=== PATIENT | female | born 1970 | race Caucasian/White ===

== ENCOUNTER → 2016-12-02 | Outpatient (CLI) | payer BC | END | disposition home or self-care (01) | LOC: LABWHC1 09:53 | PROVIDERS: ATTEND Obstetrics & Gynecology | DX: Z13.1 Encounter for screening for diabetes mellitus (principal); Z13.220 Encounter for screening for lipoid disorders | CPT/HCPCS: 36415; 80061; 82947; 84439; 84443 ==

== ENCOUNTER → 2016-12-12 | Outpatient (CLI) | payer BC ==
--- NOTE | 2016-12-17 09:06 | MM ---
Reason for exam: screening (asymptomatic). Last mammogram was performed 1 year and 2 months ago. History: Patient had first child at age 33. Family history of breast cancer in mother at age 65. Benign US biopsy breast VAD LT of the left breast, October 24, 2015. Benign cyst aspiration of the right breast, 1992. Physical Findings: A clinical breast exam by your physician is recommended on an annual basis and results should be correlated with mammographic findings. MG 3D Screening Mammo W/Cad Bilateral CC and MLO view(s) were taken. Prior study comparison: October 24, 2015, left breast MG diagnostic mammo LT wo CAD. October 05, 2015, bilateral MG 3d work up w/cad BRUCE. The breast tissue is extremely dense which could obscure a lesion on mammography. Finding: There is equal, indistinct architectural distortion in the 2 o'clock middle position of the right breast, 7cm from the nipple. Previous mammotome biopsy in the left breast. New finding since October 24, 2015 and October 05, 2015. ASSESSMENT: Incomplete: need additional imaging evaluation, BI-RAD 0 RECOMMENDATION: Special view mammogram of the right breast. If lesion persists on supplemental views, image directed ultrasound is recommended. [facility] will attempt to contact patient to return for supplemental views and ultrasound if indicated.
== END | disposition home or self-care (01) ==
LOC: RADMAMWWP 15:41
PROVIDERS: ATTEND Obstetrics & Gynecology
DX: Z12.31 Encounter for screening mammogram for malignant neoplasm of breast (principal); R92.2 Inconclusive mammogram
CPT/HCPCS: 77063; G0202

== ENCOUNTER → 2016-12-24 | Outpatient (CLI) | payer BC ==
--- NOTE | 2016-12-25 08:00 | MM ---
Reason for exam: additional evaluation requested from abnormal screening. Last mammogram was performed less than 1 month ago. History: Patient had first child at age 33. Family history of breast cancer in mother at age 65. Benign US biopsy breast VAD LT of the left breast, October 24, 2015. Benign cyst aspiration of the right breast, 1992. Physical Findings: Nurse did not find any significant physical abnormalities on exam. MG 3D Work Up W/Cad RT ML and spot compression CC view(s) were taken of the right breast. Prior study comparison: December 12, 2016, bilateral MG 3d screening mammo w/cad. October 24, 2015, left breast MG diagnostic mammo LT wo CAD. There is no discrete abnormality including area of concern. These results were verbally communicated with the patient and result sheet given to the patient on 12/24/16. ASSESSMENT: Probably benign, BI-RAD 3 RECOMMENDATION: Follow-up diagnostic mammogram of the right breast in 6 months.
== END | disposition home or self-care (01) ==
LOC: RADMAMWWP 12:55
PROVIDERS: ATTEND Obstetrics & Gynecology
DX: R92.8 Other abnormal and inconclusive findings on diagnostic imaging of breast (principal)
CPT/HCPCS: G0206; G0279

== ENCOUNTER → 2017-06-19 | Outpatient (CLI) | payer BC ==
--- NOTE | 2017-06-22 08:34 | MM ---
Reason for exam: follow-up at short interval from prior study. Last mammogram was performed 6 months ago. History: Patient had first child at age 33. Family history of breast cancer in mother at age 65. Benign US biopsy breast VAD LT of the left breast, October 24, 2015. Benign cyst aspiration of the right breast, 1992. Physical Findings: Nurse did not find any significant physical abnormalities on exam. MG 3D Diag Mammo W/Cad RT CC and MLO view(s) were taken of the right breast. Prior study comparison: December 24, 2016, right breast MG 3d work up w/cad RT. December 12, 2016, bilateral MG 3d screening mammo w/cad. June 16, 2016, left breast US breast LT. The breast tissue is heterogeneously dense. This may lower the sensitivity of mammography. Previous density decreased from prior. Some linear density present, short term follow up recommended. This finding is changed when compared with previous exams. These results were verbally communicated with the patient and result sheet given to the patient on 06/19/17. ASSESSMENT: Probably benign, BI-RAD 3 RECOMMENDATION: Follow-up diagnostic mammogram of both breasts in 6 months.
== END | disposition home or self-care (01) ==
LOC: RADMAMWWP 14:52
PROVIDERS: ATTEND Obstetrics & Gynecology
DX: R92.8 Other abnormal and inconclusive findings on diagnostic imaging of breast (principal)
CPT/HCPCS: G0206; G0279

== ENCOUNTER → 2018-01-22 | Outpatient (CLI) | payer BC ==
--- NOTE | 2018-01-22 14:38 | MM ---
Reason for exam: follow-up at short interval from prior study. Last mammogram was performed 7 months ago. History: Patient had first child at age 33. Family history of breast cancer in mother at age 65. Benign US biopsy breast VAD LT of the left breast, October 24, 2015. Benign cyst aspiration of the right breast, 1992. Physical Findings: Nurse Summary: 1 x 0.5cm nodule in the left breast at 2 o'clock (nurse ts). MG 3D Diag Mammo W/Cad BRUCE Bilateral CC and MLO view(s) were taken. Prior study comparison: June 19, 2017, right breast MG 3d diag mammo w/cad RT. December 24, 2016, right breast MG 3d work up w/cad RT. The breast tissue is heterogeneously dense. This may lower the sensitivity of mammography. New asymmetry 6cm from nipple, likely in the superior left breast as no inferior corresponding asymmetry is seen. These results were verbally communicated with the patient and result sheet given to the patient on 01/22/18. ASSESSMENT: Incomplete: need additional imaging evaluation, BI-RAD 0 RECOMMENDATION: Ultrasound of the left breast. (upper outer quadrant)
--- NOTE | 2018-01-22 14:40 | USB ---
Reason for exam: additional evaluation requested from abnormal screening. History: Patient had first child at age 33. Family history of breast cancer in mother at age 65. Benign US biopsy breast VAD LT of the left breast, October 24, 2015. Benign cyst aspiration of the right breast, 1992. US Breast Limited LT Left breast ultrasound demonstrates a 1.2 x 0.5 x 0.8cm oval, solid, hypoechoic lesion at 2 o'clock, previously biopsied, biopsy proven fibroadenoma. These results were verbally communicated with the patient and result sheet given to the patient on 01/22/18. ASSESSMENT: Probably benign, BI-RAD 3 RECOMMENDATION: Follow-up diagnostic mammogram of the left breast in 6 months. (asymmetry versus focal asymmetry with no sonographic correlate)
== END | disposition home or self-care (01) ==
LOC: RADMAMWWP 13:00
PROVIDERS: ATTEND Family Medicine
DX: R92.8 Other abnormal and inconclusive findings on diagnostic imaging of breast (principal)
CPT/HCPCS: 77066; 76642; G0279

== ENCOUNTER → 2018-07-29 | Outpatient (CLI) | payer BC ==
--- NOTE | 2018-07-29 09:45 | MM ---
Reason for exam: follow-up at short interval from prior study. Last mammogram was performed 6 months ago. History: Patient had first child at age 33. Family history of breast cancer in mother at age 65. Benign US biopsy breast VAD LT of the left breast, October 24, 2015. Benign cyst aspiration of the right breast, 1992. Physical Findings: Nurse did not find any significant physical abnormalities on exam. MG 3D Diag Mammo W/Cad LT CC, MLO, and XCCL view(s) were taken of the left breast. Prior study comparison: January 22, 2018, bilateral MG 3d diag mammo w/cad BRUCE. June 19, 2017, right breast MG 3d diag mammo w/cad RT. The breast tissue is heterogeneously dense. This may lower the sensitivity of mammography. There is no discrete abnormality including area of concern. No significant new findings when compared with previous films. These results were verbally communicated with the patient and result sheet given to the patient on 07/29/18. ASSESSMENT: Negative, BI-RAD 1 RECOMMENDATION: Routine screening mammogram of both breasts in 6 months. Back on schedule. Manage patient on a clinical basis.
== END | disposition home or self-care (01) ==
LOC: RADMAMWWP 08:56
PROVIDERS: ATTEND Obstetrics & Gynecology
DX: R92.8 Other abnormal and inconclusive findings on diagnostic imaging of breast (principal)
CPT/HCPCS: 77061; 77065

== ENCOUNTER → 2019-07-22 | Outpatient (CLI) | payer BC ==
[2019-07-22 09:43] LABS: HCT 43.4 % (34.0-46.0); HGB 14.2 gm/dL (11.4-16.0); MCH 30.5 pg (25.0-35.0); MCHC 32.8 g/dL (31.0-37.0); MCV 93.1 fL (80.0-100.0); Mean Platelet Volume 7.5; Platelet Count 276 k/uL (150-450); RBC 4.66 m/uL (3.80-5.40); RDW 14.6 % (11.5-15.5); WBC 5.3 k/uL (3.8-10.6)
[2019-07-22 10:14] LABS: Appearance,Urine Cloudy (Clear); Bacteria,Urine Rare /hpf; Bilirubin,Urine Negative (Negative); Blood,Urine Negative (Negative); Color,Urine Yellow; Glucose,Urine (UA) Negative (Negative); Ketones,Urine Negative (Negative); Leukocyte Esterase,Urine Negative (Negative); Mucus,Urine Many /hpf; Nitrite,Urine Negative (Negative); Protein,Urine Trace (Negative); RBC,Urine 2 /hpf (0-5); Specific Gravity,Urine 1.021 (1.001-1.035); Squamous Epithelial Cell,Urine 9 /hpf (0-4); Urobilinogen,Urine <2.0 mg/dL (<2.0); WBC,Urine 1 /hpf (0-5)
[2019-07-22 17:10] LABS: Albumin 4.1 g/dL (3.80-4.90); Albumin/Globulin Ratio 2.05 (1.60-3.17); Anion Gap 6.8 mmol/L (4.00-12.00); BUN/Creat Ratio 15.56 Ratio (12.00-20.00); Calcium 9.2 mg/dL (8.7-10.3); Carbon Dioxide 29.2 mmol/L (21.6-31.8); Chol/HDL Ratio 2.95; Non-African American GFR(CKD) 75.1 (60.0-200.0); Potassium 4.7 mmol/L (3.5-5.5); Total Bilirubin 0.5 mg/dL (0.3-1.2); Total Protein 6.1 g/dL (6.2-8.2)
== END | disposition home or self-care (01) ==
LOC: LABWHC1 08:39
PROVIDERS: ATTEND Family Medicine
DX: Z00.00 Encounter for general adult medical examination without abnormal findings (principal)
CPT/HCPCS: 36415; 80053; 80061; 81001; 85027

== ENCOUNTER → 2019-12-14 | Outpatient (CLI) | payer BC ==
--- NOTE | 2019-12-16 10:23 | MM ---
Reason for exam: screening (asymptomatic). Last mammogram was performed 1 year and 5 months ago. History: Patient had first child at age 33. Family history of breast cancer in mother at age 65. Benign US biopsy breast VAD LT of the left breast, October 24, 2015. Benign cyst aspiration of the right breast, 1992. Physical Findings: A clinical breast exam by your physician is recommended on an annual basis and results should be correlated with mammographic findings. MG 3D Screening Mammo W/Cad Bilateral CC and MLO view(s) were taken. Prior study comparison: July 29, 2018, left breast MG 3d diag mammo w/cad LT. January 22, 2018, bilateral MG 3d diag mammo w/cad BRUCE. The breast tissue is heterogeneously dense. This may lower the sensitivity of mammography. Previous mammotome biopsy in the left breast. There is chronic nodularity in the right breast associated with fat necrosis. There is chronic nodularity in the left breast medially. Benign fat necrosis calcifications anterior upper outer quadrant right breast. No significant changes when compared with prior studies. ASSESSMENT: Benign, BI-RAD 2 RECOMMENDATION: Routine screening mammogram of both breasts in 1 year.
== END | disposition home or self-care (01) ==
LOC: RADMAMWWP 16:54
PROVIDERS: ATTEND Obstetrics & Gynecology
DX: Z12.31 Encounter for screening mammogram for malignant neoplasm of breast (principal); Z80.3 Family history of malignant neoplasm of breast
CPT/HCPCS: 77063; 77067

== ENCOUNTER 2020-03-25 15:55 | Observation (INO) | payer BC ==
--- NOTE | 2020-03-25 16:27 | ED ---
General Adult HPI - General Chief complaint: Chest Pain Stated complaint: Chest Pain Time Seen by Provider: 03/25/20 16:06 Source: patient Mode of arrival: ambulatory Limitations: no limitations - History of Present Illness Initial comments: 49-year-old female patient presents to the emergency department today for evaluation of left-sided chest discomfort. Patient states symptoms started yesterday is like a pulled muscle feeling in the left side of her chest. States that the pain was intermittent and seem to worsen with physical activity. States that the pain is moved to beneath her armpits today. Patient states that she did have some nausea last evening. Denies any diaphoresis or shortness of breath. Denies any leg swelling, calf tenderness, or leg redness. Denies any history of similar symptoms. Denies history of smoking. She does have a family history of coronary artery disease, her father had a 5 vessel CABG at age 71. Patient denies any recent rash, fever, chills, cough, diarrhea, constipation, back pain, numbness, tingling, dizziness, weakness, hematuria, dysuria, urinary urgency, urinary frequency, headache, visual changes, or any other complaints. - Related Data Home Medications Medication Instructions Recorded Confirmed Aspirin EC [Ecotrin Low Dose] 81 mg PO ONCE PRN 03/25/20 03/25/20 Latanoprost [Xalatan 0.005%] 1 drop BOTH EYES HS 03/25/20 03/25/20 Omeprazole 20 mg PO DAILY 03/25/20 03/25/20 Allergies Allergy/AdvReac Type Severity Reaction Status Date / Time codeine Allergy Nausea & Verified 03/25/20 17:22 Vomiting Penicillins Allergy Rash/Hives Verified 03/25/20 17:22 Review of Systems ROS Statement: Those systems with pertinent positive or pertinent negative responses have been documented in the HPI. ROS Other: All systems not noted in ROS Statement are negative. Past Medical History Past Medical History: GERD/Reflux History of Any Multi-Drug Resistant Organisms: None Reported Past Surgical History: No Surgical Hx Reported Past Psychological History: No Psychological Hx Reported Smoking Status: Never smoker Past Alcohol Use History: None Reported Past Drug Use History: None Reported General Exam Limitations: no limitations General appearance: alert, in no apparent distress, other (This is a well- developed, well-nourished adult female patient in no acute distress. Vital signs upon presentation are temperature 97.9F, pulse 88, respirations 18, blood pressure 132/81, pulse ox 97% on room air) Eye exam: Present: normal appearance, PERRL, EOMI. Absent: scleral icterus, conjunctival injection, periorbital swelling ENT exam: Present: normal exam, normal oropharynx, mucous membranes moist Respiratory exam: Present: normal lung sounds bilaterally. Absent: respiratory distress, wheezes, rales, rhonchi, stridor Cardiovascular Exam: Present: regular rate, normal rhythm, normal heart sounds. Absent: systolic murmur, diastolic murmur, rubs, gallop, clicks GI/Abdominal exam: Present: soft, normal bowel sounds. Absent: distended, tenderness, guarding, rebound, rigid Neurological exam: Present: alert, oriented X3, CN II-XII intact Psychiatric exam: Present: normal affect, normal mood Skin exam: Present: warm, dry, intact, normal color. 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 No evidence of ST elevation or depression. Medical Decision Making - Medical Decision Making 49-year-old female patient presents to the emergency department today for evaluation of chest pain. Patient's pain is on the left side radiating into her armpit. Pain is worse with exertion. Physical examination is unremarkable. Labs were reviewed and initial troponin is negative. She'll be admitted for serial troponins and further evaluation by cardiology in the morning. She is agreeable to this plan. - Lab Data Result diagrams: 03/25/20 16:16 03/25/20 16:16 Lab Results 03/25/20 03/25/20 03/25/20 Range/Units 16:16 16:16 16:16 WBC 5.5 (3.8-10.6) k/uL RBC 4.87 (3.80-5.40) m/uL Hgb 14.9 (11.4-16.0) gm/dL Hct 45.4 (34.0-46.0) % MCV 93.2 (80.0-100.0) fL MCH 30.5 (25.0-35.0) pg MCHC 32.7 (31.0-37.0) g/dL RDW 12.4 (11.5-15.5) % Plt Count 245 (150-450) k/uL Neutrophils % 67 % Lymphocytes % 23 % Monocytes % 5 % Eosinophils % 2 % Basophils % 1 % Neutrophils # 3.7 (1.3-7.7) k/uL Lymphocytes # 1.3 (1.0-4.8) k/uL Monocytes # 0.3 (0-1.0) k/uL Eosinophils # 0.1 (0-0.7) k/uL Basophils # 0.0 (0-0.2) k/uL PT 10.1 (9.0-12.0) sec INR 1.0 (<1.2) APTT 24.6 (22.0-30.0) sec Sodium 140 (137-145) mmol/L Potassium 3.9 (3.5-5.1) mmol/L Chloride 101 (98-107) mmol/L Carbon Dioxide 30 (22-30) mmol/L Anion Gap 9 mmol/L BUN 15 (7-17) mg/dL Creatinine 0.88 (0.52-1.04) mg/dL Est GFR (CKD-EPI)AfAm 90 (>60 ml/min/1.73 sqM) Est GFR (CKD-EPI)NonAf 78 (>60 ml/min/1.73 sqM) Glucose 100 H (74-99) mg/dL Calcium 9.7 (8.4-10.2) mg/dL Magnesium 2.0 (1.6-2.3) mg/dL Total Bilirubin 0.4 (0.2-1.3) mg/dL AST 19 (14-36) U/L ALT 14 (4-34) U/L Alkaline Phosphatase 71 (38-126) U/L Troponin I (0.000-0.034) ng/mL Total Protein 7.6 (6.3-8.2) g/dL Albumin 4.7 (3.5-5.0) g/dL Lipase 78 (23-300) U/L 03/25/20 Range/Units 16:16 WBC (3.8-10.6) k/uL RBC (3.80-5.40) m/uL Hgb (11.4-16.0) gm/dL Hct (34.0-46.0) % MCV (80.0-100.0) fL MCH (25.0-35.0) pg MCHC (31.0-37.0) g/dL RDW (11.5-15.5) % Plt Count (150-450) k/uL Neutrophils % % Lymphocytes % % Monocytes % % Eosinophils % % Basophils % % Neutrophils # (1.3-7.7) k/uL Lymphocytes # (1.0-4.8) k/uL Monocytes # (0-1.0) k/uL Eosinophils # (0-0.7) k/uL Basophils # (0-0.2) k/uL PT (9.0-12.0) sec INR (<1.2) APTT (22.0-30.0) sec Sodium (137-145) mmol/L Potassium (3.5-5.1) mmol/L Chloride (98-107) mmol/L Carbon Dioxide (22-30) mmol/L Anion Gap mmol/L BUN (7-17) mg/dL Creatinine (0.52-1.04) mg/dL Est GFR (CKD-EPI)AfAm (>60 ml/min/1.73 sqM) Est GFR (CKD-EPI)NonAf (>60 ml/min/1.73 sqM) Glucose (74-99) mg/dL Calcium (8.4-10.2) mg/dL Magnesium (1.6-2.3) mg/dL Total Bilirubin (0.2-1.3) mg/dL AST (14-36) U/L ALT (4-34) U/L Alkaline Phosphatase (38-126) U/L Troponin I <0.012 (0.000-0.034) ng/mL Total Protein (6.3-8.2) g/dL Albumin (3.5-5.0) g/dL Lipase (23-300) U/L - Radiology Data Radiology results: report reviewed, image reviewed Two-view x-ray of the chest is obtained. Report was reviewed in its entirety. Impression by Dr. Anand shows no acute pulmonary process. Disposition Clinical Impression: Chest pain Disposition: ADMITTED IP TO THIS HOSP Condition: Serious Referrals: Ulises Rojas MD [Primary Care Provider] - 1-2 days Decision to Admit Reason: Admit from EC Decision Date: 03/25/20 Decision Time: 18:14
[2020-03-25 16:45] LABS: Basophils % (A) 1 %; Eosinophils # (A) 0.1 k/uL (0-0.7); Eosinophils % (A) 2 %; HCT 45.4 % (34.0-46.0); HGB 14.9 gm/dL (11.4-16.0); Lymphocytes # (A) 1.3 k/uL (1.0-4.8); Lymphocytes % (A) 23 %; MCH 30.5 pg (25.0-35.0); MCHC 32.7 g/dL (31.0-37.0); MCV 93.2 fL (80.0-100.0); Mean Platelet Volume 8.1; Monocytes # (A) 0.3 k/uL (0-1.0); Monocytes % (A) 5 %; Neutrophils # (A) 3.7 k/uL (1.3-7.7); Neutrophils % (A) 67 %; Platelet Count 245 k/uL (150-450); RBC 4.87 m/uL (3.80-5.40); RDW 12.4 % (11.5-15.5); WBC 5.5 k/uL (3.8-10.6)
[2020-03-25 16:48] LABS: Albumin 4.7 g/dL (3.5-5.0); Calcium 9.7 mg/dL (8.4-10.2); Potassium 3.9 mmol/L (3.5-5.1); Total Bilirubin 0.4 mg/dL (0.2-1.3); Total Protein 7.6 g/dL (6.3-8.2)
--- NOTE | 2020-03-25 16:48 | XR ---
EXAMINATION TYPE: XR chest 2V DATE OF EXAM: 03/25/2020 COMPARISON: 05/28/2011 INDICATION: Chest pain left side increases with activity TECHNIQUE: Frontal and lateral views of the chest are obtained. FINDINGS: The heart size is normal. The pulmonary vasculature is normal. The lungs are clear. IMPRESSION: 1. No acute pulmonary process.
[2020-03-25 16:51] LABS: Partial Thromboplastin Time 24.6 sec (22.0-30.0); Prothrombin Time 10.1 sec (9.0-12.0)
[2020-03-25] MEDS ORDERED: NITROGLYCERIN SL TABS 0.4 MG TAB SUBLINGUAL PRN (18:10)
[2020-03-25] MEDS ORDERED: ONDANSETRON 4 MG/2 ML VIAL IVP PRN (22:24)
[2020-03-25] MEDS: NITROGLYCERIN OINT 1 INCH/GM PACKET TOPICAL SCH ×2 (22:39→23:34)
[2020-03-26 04:45] LABS: HCT 39.6 % (34.0-46.0); HGB 13.4 gm/dL (11.4-16.0); MCH 31.4 pg (25.0-35.0); MCHC 33.8 g/dL (31.0-37.0); MCV 92.9 fL (80.0-100.0); Platelet Count 216 k/uL (150-450); RBC 4.26 m/uL (3.80-5.40); RDW 12.5 % (11.5-15.5); WBC 5.9 k/uL (3.8-10.6)
[2020-03-26 05:03] LABS: Cholesterol 164 mg/dL (<200); HDL Cholesterol 49 mg/dL (40-60); LDL Cholesterol,Calculated 94 mg/dL (0-99); Triglycerides 104 mg/dL (<150)
[2020-03-26] MEDS: NITROGLYCERIN OINT 1 INCH/GM PACKET TOPICAL SCH (05:03)
[2020-03-26] MEDS ORDERED: ASPIRIN 325 MG TAB PO SCH (09:00)
[2020-03-26] MEDS ORDERED: PANTOPRAZOLE 40 MG TABLET PO SCH (09:00)
[2020-03-26] MEDS ORDERED: HEPARIN SODIUM,PORCINE 5,000 UNIT/ML 1 ML VIAL SQ SCH (09:00)
--- NOTE | 2020-03-26 09:03 | P.CRDCN ---
History of Present Illness Consult date: 03/26/20 Consult reason: chest pain Chief complaint: Chest pain History of present illness: This is a pleasant 49-year-old female with no prior documented history of hypertension, no diabetes, no hyperlipidemia, no prior history of smoking. Her father had coronary artery bypass grafting surgery at the age of 71. She presents to the hospital on this occasion with symptoms of left-sided chest discomfort, which the patient states started the day before coming to the hospital. She initially stated that it felt like a pulled muscle in her chest. It is very localized, mainly in the left sided rib area. Patient did state that prior to coming to the hospital she did have an episode of nausea and hot flashes the night before. This morning the patient is currently chest pain- free. Blood pressure 90/50 with a heart rate in the 60s, 96% on room air. Chest x-ray did not reveal any acute pulmonary process. EKGs show normal sinus rhythm with no acute changes. White blood cell count 5.9, hemoglobin 13.4, platelet count 216. Sodium 140, potassium 3.9, BUN 15, creatinine 0.8. Magnesium 2.0. Troponins are negative 3. Olson virus and not detected. Patient was seen and evaluated by Dr. Desir, the decision was made to obtain an echocardiogram with Doppler study, if normal the patient may be able to be discharged home. He will follow-up in the office with her in one week, outpatient stress testing will be performed if necessary. Past Medical History Past Medical History: GERD/Reflux History of Any Multi-Drug Resistant Organisms: None Reported Past Surgical History: No Surgical Hx Reported Past Psychological History: No Psychological Hx Reported Smoking Status: Never smoker Past Alcohol Use History: None Reported Past Drug Use History: None Reported Medications and Allergies Home Medications Medication Instructions Recorded Confirmed Type Aspirin EC [Ecotrin Low Dose] 81 mg PO ONCE PRN 03/25/20 03/25/20 History Latanoprost [Xalatan 0.005%] 1 drop BOTH EYES HS 03/25/20 03/25/20 History Omeprazole 20 mg PO DAILY 03/25/20 03/25/20 History Allergies Allergy/AdvReac Type Severity Reaction Status Date / Time codeine Allergy Nausea & Verified 03/25/20 17:22 Vomiting Penicillins Allergy Rash/Hives Verified 03/25/20 17:22 Physical Exam Vitals: Vital Signs Temp Pulse Pulse Pulse Resp BP BP 03/26/20 08:05 98.5 F 48 L 16 85/53 03/26/20 04:00 64 16 90/52 03/25/20 23:45 72 16 126/79 03/25/20 22:03 90 16 95/59 03/25/20 21:57 68 16 122/77 03/25/20 20:00 97.6 F 59 L 16 129/86 03/25/20 18:00 52 L 17 117/81 03/25/20 17:30 60 19 111/80 03/25/20 17:00 62 18 117/77 03/25/20 16:30 71 17 129/95 03/25/20 16:20 82 03/25/20 16:11 76 17 03/25/20 16:00 97.9 F 88 18 132/81 Pulse Ox 03/26/20 08:05 99 03/26/20 04:00 96 03/25/20 23:45 98 03/25/20 22:03 97 03/25/20 21:57 98 03/25/20 20:00 98 03/25/20 18:00 100 03/25/20 17:30 98 03/25/20 17:00 98 03/25/20 16:30 100 03/25/20 16:20 03/25/20 16:11 99 03/25/20 16:00 97 Intake and Output 03/25/20 03/26/20 03/26/20 22:59 06:59 14:59 Other: # Voids 1 0 Weight 68.039 kg 65.5 kg PHYSICAL EXAMINATION: GENERAL: 49-year-old female in no acute distress at the time of my e xamination HEENT: Head is atraumatic, normocephalic. Pupils equal, round. Sclera anicteric. Conjunctiva are clear. Mucous membranes of the mouth are moist. Neck is supple. There is no elevated jugular venous pressure. No carotid bruit is heard. HEART EXAMINATION: Heart S1, S2 normal. No murmur or gallop heard. CHEST EXAMINATION: Lungs are clear to auscultation and precussion. No chest wall tenderness is noted on palpation or with deep breathing. ABDOMEN: Soft, nontender. Bowel sounds are heard. No organomegaly noted. EXTREMITIES: 2+ peripheral pulses with no evidence of peripheral edema and no calf tenderness noted. NEUROLOGIC patient is awake, alert and oriented 3 . Results 03/26/20 04:37 03/25/20 16:16 Cardiac Enzymes 03/25/20 03/25/20 03/25/20 Range/Units 16:16 16:16 23:09 AST 19 (14-36) U/L Troponin I <0.012 <0.012 (0.000-0.034) ng/mL 03/26/20 Range/Units 04:37 AST (14-36) U/L Troponin I <0.012 (0.000-0.034) ng/mL Coagulation 03/25/20 Range/Units 16:16 PT 10.1 (9.0-12.0) sec APTT 24.6 (22.0-30.0) sec Lipids 03/26/20 Range/Units 04:37 Triglycerides 104 (<150) mg/dL Cholesterol 164 (<200) mg/dL HDL Cholesterol 49 (40-60) mg/dL CBC 03/25/20 03/26/20 Range/Units 16:16 04:37 WBC 5.5 5.9 (3.8-10.6) k/uL RBC 4.87 4.26 (3.80-5.40) m/uL Hgb 14.9 13.4 (11.4-16.0) gm/dL Hct 45.4 39.6 (34.0-46.0) % Plt Count 245 216 (150-450) k/uL Comprehensive Metabolic Panel 03/25/20 Range/Units 16:16 Sodium 140 (137-145) mmol/L Potassium 3.9 (3.5-5.1) mmol/L Chloride 101 (98-107) mmol/L Carbon Dioxide 30 (22-30) mmol/L BUN 15 (7-17) mg/dL Creatinine 0.88 (0.52-1.04) mg/dL Glucose 100 H (74-99) mg/dL Calcium 9.7 (8.4-10.2) mg/dL AST 19 (14-36) U/L ALT 14 (4-34) U/L Alkaline Phosphatase 71 (38-126) U/L Total Protein 7.6 (6.3-8.2) g/dL Albumin 4.7 (3.5-5.0) g/dL Current Medications Generic Name Dose Route Start Last Admin Trade Name Freq PRN Reason Stop Dose Admin Aspirin 325 mg 03/26/20 09:00 03/26/20 08:15 Aspirin PO 325 mg DAILY RAGHU Administration Heparin Sodium (Porcine) 5,000 unit 03/26/20 09:00 03/26/20 08:15 Heparin SQ 5,000 unit Q12HR RAGHU Administration Latanoprost 1 drops 03/26/20 21:00 Xalatan 0.005% BOTH EYES HS RAGHU Nitroglycerin 0.4 mg 03/25/20 18:10 03/25/20 21:57 Nitrostat SUBLINGUAL 0.4 mg Q5M PRN Administration Chest Pain Nitroglycerin 1 inch 03/25/20 22:25 03/26/20 05:03 Nitro-Bid Oint TOPICAL Not Given Q6HR [facility] Ondansetron HCl 4 mg 03/25/20 22:24 03/25/20 22:39 Zofran IVP 4 mg Q6HR PRN Administration Nausea And Vomiting Pantoprazole Sodium 40 mg 03/26/20 09:00 Protonix PO AC-BRKFST [facility] Intake and Output 03/25/20 03/26/20 03/26/20 22:59 06:59 14:59 Other: # Voids 1 0 Weight 68.039 kg 65.5 kg 03/26/20 04:37 03/25/20 16:16 EKG Interpretations (text) EKG shows a normal sinus rhythm with no acute changes. Assessment and Plan Plan: Assessment and plan #1 symptoms of chest discomfort, very localized on the left side of the chest, atypical for acute coronary syndrome. Troponins are negative 3. EKG shows a normal sinus rhythm with no acute changes. #2 cardiac risk factors negative for hypertension, no diabetes, no hyperlipidemia, she is a nonsmoker. #3 GERD Plan We will obtain an echocardiogram with Doppler study. Discontinue heparin. Discontinue Nitropaste. Decrease aspirin to 81 mg daily. If the patient's echocardiogram with Doppler study is normal, then from cardiology's perspective she may be able to be discharged home. We will make her a follow-up visit with Dr. Desir in one week, outpatient stress testing will be performed if necessary. DNP note has been reviewed, I agree with a documented findings and plan of care. Patient was seen and examined.
--- NOTE | 2020-03-26 10:00 | ECHOF ---
Referral Reason:chest pain MEASUREMENTS -------- HEIGHT: 165.1 cm WEIGHT: 65.3 kg BP: IVSd: 0.8 cm (0.6 - 1.1) LVIDd: 4.6 cm (3.9 - 5.3) LVPWd: 1.0 cm (0.6 - 1.1) IVSs: 1.1 cm LVIDs: 2.8 cm LVPWs: 1.3 cm Ao Diam: 2.6 cm (2.0 - 3.7) AV Cusp: 2.0 cm (1.5 - 2.6) LA Diam: 3.2 cm (2.7 - 3.8) MV EXCURSION: 20.477 mm (> 18.000) MV EF SLOPE: 188 mm/s (70 - 150) EPSS: 0.7 cm MV E Wili: 0.66 m/s MV DecT: 184 ms MV A Wili: 0.48 m/s MV E/A Ratio: 1.38 RAP: 5.00 mmHg RVSP: 21.42 mmHg FINDINGS -------- Resting bradycardia (HR<60bpm). This was a technically good study. The left ventricular size is normal. Left ventricular wall thickness is normal. Overall left vent ricular systolic function is low-normal with, an EF between 50 - 55 %. The right ventricle is normal in size. The left atrial size is normal. The right atrial size is normal. The aortic valve is trileaflet and appears structurally normal. The mitral valve is normal. There is trace mitral regurgitation. The tricuspid valve appears structurally normal. Trace tricuspid regurgitation present. Right ariana tricular systolic pressure is normal at < 35 mmHg. There is no pulmonic regurgitation present. The aortic root size is normal. Normal inferior vena cava with normal inspiratory collapse consistent with estimated right atrial pre ssure of 5 mmHg. There is no pericardial effusion. CONCLUSIONS -------- 1. Resting bradycardia (HR<60bpm). 2. This was a technically good study. 3. The left ventricular size is normal. 4. Left ventricular wall thickness is normal. 5. Overall left ventricular systolic function is low-normal with, an EF between 50 - 55 %. 6. The right ventricle is normal in size. 7. The left atrial size is normal. 8. The right atrial size is normal. 9. The aortic valve is trileaflet and appears structurally normal. 10. The mitral valve is normal. 11. There is trace mitral regurgitation. 12. The tricuspid valve appears structurally normal. 13. Trace tricuspid regurgitation present. 14. Right ventricular systolic pressure is normal at < 35 mmHg. 15. There is no pulmonic regurgitation present. 16. The aortic root size is normal. 17. Normal inferior vena cava with normal inspiratory collapse consistent with estimated right atrial pressure of 5 mmHg. 18. There is no pericardial effusion. POLITICAL THEORY PROFESSOR: Domenica Kim RDCS
[2020-03-26 12:01] VITALS: BP 97/63; PULSE 82; RESP 18; TEMP 98
[2020-03-26] MEDS ORDERED: LATANOPROST 0.005% OPHTH DROPS 2.5 ML BTL BOTH EYES SCH (21:00)
--- NOTE | 2020-03-26 21:58 | P.HPIM ---
History of Present Illness H&P Date: 03/26/20 Chief Complaint: Chest pain History of presenting complaint: This is a very pleasant 49-year-old patient of Dr. Rojas. Rather unremarkable past medical history except for history of reflux somewhat uncontrolled. 2 days ago she woke up in the morning with the pain below the left infraclavicular area. It was tender to touch does no cough no fever no chills. Pain did not radiate to the neck or arm. Not related to exertion. Patient denied having remember any excessive activity. He was present most of the time. Decided to come in to get checked of the same. From a cardiac cause. Patient is rather active. No prior cardiac history. Review of systems: GEN.: None EYES: None HEENT: None NECK: None RESPIRATORY: None CARDIOVASCULAR: As above GASTROINTESTINAL: Reflux symptoms GENITOURINARY: None MUSCULOSKELETAL: None LYMPHATICS: None HEMATOLOGICAL: None PSYCHIATRY: None NEUROLOGICAL: None Past medical history to include: Reflux Social history: . teacher early childhood development. No smoking no alcohol. Family history: Reviewed, noncontributory to presentation Physical examination: VITAL SIGNS: 97.9, 88, 18, 132/81, 97% on room air GENERAL: BMI 24, sitting up awake. EYES: Pupils equal. Conjunctiva normal. HEENT: External appearance of nose and ears normal, oral cavity grossly normal. NECK: JVD not raised; masses not palpable. HEART: First and second heart sounds are normal; no edema. LUNGS: Respiratory rate normal; clear to auscultation. ABDOMEN: Soft, nontender, liver spleen not palpable, no masses palpable. PSYCH: Alert and oriented x3; mood and affect normal. NEUROLOGICAL: Cranial nerves grossly intact; no facial asymmetry, power and sensation grossly intact MUSCULOSKELETAL: Localized tenderness below the infraclavicular area about 3 inches below. Reproducible. LYMPHATICS: No lymph nodes palpable in the axilla and neck INVESTIGATIONS, reviewed in the clinical context: White count 5.5 hemoglobin 14.9 platelets 245 progression 3.9 crit 0.88 Troponin I 3 negative LDL 94 COVID 19 pCR-not detected EKG tracing personally reviewed by me-normal sinus rhythm Chest x-ray film personally reviewed by me-no infiltrates Assessment: -Left anterior chest wall pain, reproducible, doubt cardiac cause -GERD-controlled Plan: Serial cardiac enzymes are negative. Cardiology was consulted. 2-D daughter 2- D echocardiogram. Discussed with the patient to have an outpatient EGD. Because of Prilosec to be doubled. Past Medical History Past Medical History: GERD/Reflux History of Any Multi-Drug Resistant Organisms: None Reported Past Surgical History: No Surgical Hx Reported Past Psychological History: No Psychological Hx Reported Smoking Status: Never smoker Past Alcohol Use History: None Reported Past Drug Use History: None Reported Medications and Allergies Home Medications Medication Instructions Recorded Confirmed Type Latanoprost [Xalatan 0.005%] 1 drop BOTH EYES HS 03/25/20 03/25/20 History Omeprazole 20 mg PO BID #60 cap 03/26/20 Rx Allergies Allergy/AdvReac Type Severity Reaction Status Date / Time codeine Allergy Nausea & Verified 03/25/20 17:22 Vomiting Penicillins Allergy Rash/Hives Verified 03/25/20 17:22 Physical Exam Vitals: Vital Signs Temp Pulse Pulse Pulse Resp BP BP 03/26/20 08:05 98.5 F 48 L 16 85/53 03/26/20 04:00 64 16 90/52 03/25/20 23:45 72 16 126/79 03/25/20 22:03 90 16 95/59 03/25/20 21:57 68 16 122/77 03/25/20 20:00 97.6 F 59 L 16 129/86 03/25/20 18:00 52 L 17 117/81 03/25/20 17:30 60 19 111/80 03/25/20 17:00 62 18 117/77 03/25/20 16:30 71 17 129/95 03/25/20 16:20 82 03/25/20 16:11 76 17 03/25/20 16:00 97.9 F 88 18 132/81 Pulse Ox 03/26/20 08:05 99 03/26/20 04:00 96 03/25/20 23:45 98 03/25/20 22:03 97 03/25/20 21:57 98 03/25/20 20:00 98 03/25/20 18:00 100 03/25/20 17:30 98 03/25/20 17:00 98 03/25/20 16:30 100 03/25/20 16:20 03/25/20 16:11 99 03/25/20 16:00 97 Intake and Output 03/25/20 03/26/20 03/26/20 22:59 06:59 14:59 Other: # Voids 1 0 Weight 68.039 kg 65.5 kg Results CBC & Chem 7: 03/26/20 04:37 03/25/20 16:16 Labs: Abnormal Lab Results - Last 24 Hours (Table) 03/25/20 Range/Units 16:16 Glucose 100 H (74-99) mg/dL Thrombosis Risk Factor Assmnt - Choose All That Apply Any of the Below Risk Factors Present?: Yes Each Factor Represents 1 point: Age 41-60 years Other Risk Factors: No Other congenital or acquired thrombophilia - If yes, enter type in comment: No Thrombosis Risk Factor Assessment Total Risk Factor Score: 1 Thrombosis Risk Factor Assessment Level: Low Risk
--- NOTE | 2020-03-26 22:01 | P.DS ---
Providers Date of admission: 03/25/20 18:15 Expected date of discharge: 03/26/20 Attending physician: Tang Sutton Consults: 03/25/20 18:11 Consult Physician Urgent Consulting Provider: [facility] Consult Reason/Comments: Chest Pain Do you want consulting provider notified?: Yes Primary care physician: [facility] Course: Chief Complaint: Chest pain History of presenting complaint: This is a very pleasant 49-year-old patient of Dr. Rojas. Rather unremarkable past medical history except for history of reflux somewhat uncontrolled. 2 days ago she woke up in the morning with the pain below the left infraclavicular area. It was tender to touch does no cough no fever no chills. Pain did not radiate to the neck or arm. Not related to exertion. Patient denied having remember any excessive activity. He was present most of the time. Decided to come in to get checked of the same. From a cardiac cause. Patient is rather active. No prior cardiac history. Patient's pain is felt to be musculoskeletal. Seen by cardiology. Troponins were negative. 2-D: Was unremarkable. Cleared for discharge. Discussed with the patient. Patient is a EGD as an outpatient. Does of [employer] doubled. Consultation: Dr. Gerson Rosenberg from cardiology Physical examination: VITAL SIGNS: 98, 82, 18, 64213, 98% on room air GENERAL: BMI 24, sitting up awake. EYES: Pupils equal. Conjunctiva normal. HEENT: External appearance of nose and ears normal, oral cavity grossly normal. NECK: JVD not raised; masses not palpable. HEART: First and second heart sounds are normal; no edema. LUNGS: Respiratory rate normal; clear to auscultation. ABDOMEN: Soft, nontender, liver spleen not palpable, no masses palpable. PSYCH: Alert and oriented x3; mood and affect normal. NEUROLOGICAL: Cranial nerves grossly intact; no facial asymmetry, power and sensation grossly intact MUSCULOSKELETAL: Localized tenderness below the infraclavicular area about 3 inches below. Reproducible. INVESTIGATIONS, reviewed in the clinical context: White count 5.5 hemoglobin 14.9 platelets 245 progression 3.9 crit 0.88 Troponin I 3 negative LDL 94 COVID 19 pCR-not detected EKG tracing personally reviewed by me-normal sinus rhythm Chest x-ray film personally reviewed by me-no infiltrates 2-D echo-EF 50-55% Assessment: -Left anterior chest wall pain, reproducible, likely musculoskeletal -GERD-controlled Disposition: Home. Patient Condition at Discharge: Stable Plan - Discharge Summary Discharge Rx Participant: No New Discharge Prescriptions: Continue Latanoprost [Xalatan 0.005%] 1 drop BOTH EYES HS Changed Omeprazole 20 mg PO BID #60 cap Discontinued Aspirin EC [Ecotrin Low Dose] 81 mg PO ONCE PRN PRN Reason: Chest Pain Discharge Medication List Latanoprost [Xalatan 0.005%] 1 drop BOTH EYES HS 03/25/20 [History] Omeprazole 20 mg PO BID #60 cap 03/26/20 [Rx] Follow up Appointment(s)/Referral(s): Gerson Rosenberg MD [STAFF PHYSICIAN] - 04/04/20 3:00 pm (Follow-up with Dr. Rosenberg/Nichol Kitchen/Cely López Arrive 15 minutes early, bring drivers license and insurance card.) Ulises Rojas MD [Primary Care Provider] - 04/10/20 1:20 pm Aditi Keith MD [STAFF PHYSICIAN] - 04/06/20 9:15 am Discharge Disposition: HOME SELF-CARE
[2020-03-27] MEDS ORDERED: ASPIRIN 81 MG PO SCH (09:00)
== END 2020-03-26 18:34 | disposition home or self-care (01) ==
LOC: EC 15:55 → 3SCARD 18:15
PROVIDERS: ADMIT Hospitalist; ATTEND Hospitalist
DX: R07.89 Other chest pain (principal); K21.9 Gastro-esophageal reflux disease without esophagitis; R23.2 Flushing; R11.0 Nausea; Z79.899 Other long term (current) drug therapy; Z88.0 Allergy status to penicillin; Z88.5 Allergy status to narcotic agent; Z82.49 Family history of ischemic heart disease and other diseases of the circulatory system; Z03.818 Encounter for observation for suspected exposure to other biological agents ruled out
CPT/HCPCS: 96372; 96374; 93005 ×2; 99285; 36415; 93306; 80061; 80053; 83690; 83735; 84484 ×2; 85025; 85027; 85610; 85730; 87635; 71046; G0378 ×2; J1644; J2405

== ENCOUNTER 2020-05-30 08:40 | Day surgery (SDC) | payer BC ==
[2020-05-29 11:56] VITALS: BMI 24.6
[~2020-05-30 08:40] MED LIST: LACTATED RINGERS 1,000 ML IV SCH
[2020-05-30 08:58] VITALS: TEMP 97.8
[2020-05-30] MEDS ORDERED: LIDOCAINE 1% (10MG/ML) FOR IV START INTRADERMA ONE (08:59)
[2020-05-30] MEDS ORDERED: LACTATED RINGERS 1,000 ML IV ONE (08:59)
[2020-05-30] MEDS ORDERED: PROPOFOL 10 MG/ML 20 ML VIAL IV ONE (09:45)
[2020-05-30] MEDS ORDERED: LIDOCAINE 1% INJ 10MG/ML (20 ML MDV) ONE (09:45)
--- NOTE | 2020-05-30 10:10 | P.PCN ---
Date of Procedure: 05/30/20 Procedure(s) Performed: Brief history: Patient is a pleasant 50-year-old white female scheduled for an elective upper endoscopy as well as colonoscopy as a part of evaluation of long-standing history of GERD and intermittent atypical chest pain as well as screening for colorectal neoplasia Procedure performed: Esophagogastroduodenoscopy with biopsy Colonoscopy Preoperative diagnosis: GERD/chest pain Screening for colon cancer Anesthesia: MAC Procedure: After informed consent was obtained from the patient was brought into the endoscopy unit and IV sedation was administered by anesthesia under continuous monitoring. Initially upper endoscopy was done. The Olympus GF 160 video endoscope was inserted inserted into the mouth and esophagus intubated without any difficulty and was gradually advanced into the stomach and duodenum and carefully examined. The bulb and second part of the duodenum appeared normal. The scope was then withdrawn into the stomach adequately insufflated with air and upon careful examination the antrum had mild gastritis was noted and biopsies were done from this area. The body, cardia and fundus appeared normal. The scope was then withdrawn into the esophagus. The GE junction was located at 38 cm to the incisors. It appeared regular with no erythema erosions or ulcerations. There was a 2 mm Corbin's appearing mucosa just proximal to the incisors which was biopsied. Rest of the esophagus appeared normal. Patient tolerated the procedure well. At this time the patient continued to remain sedation. Initial digital rectal examination was normal. Olympus CF 160 video colonoscope was then inserted into the rectum and gradually advanced to the cecum without any difficulty. Careful examination was performed as the scope was gradually being withdrawn. The prep was excellent. The cecum, ascending colon, transverse colon, descending colon, sigmoid colon and rectum appeared normal. Scattered sigmoid diverticulosis. Retroflexion was performed in the rectum and no lesions were noted. Patient tolerated the procedure well. Impression: 1. Upper endoscopy revealed mild antral gastritis and short segment Corbin's esophagus. 2. Colonoscopy was essentially within normal colitis with no evidence of colorectal neoplasia Recommendations: Findings of this examination were discussed with the patient as well as a family. She will continue with omeprazole 20 mg daily and follow antireflux measures. she was advised to follow with the biopsy results . She can have a repeat screening colonoscopy in 10 years.
[2020-05-30 10:22] VITALS: RESP 16
[2020-05-30 10:48] VITALS: BP 116/59; PULSE 62
== END 2020-05-30 11:08 | disposition home or self-care (01) ==
LOC: ORWHC2ENDO 08:40
PROVIDERS: ATTEND Internal Medicine Gastroenterology
DX: Z12.11 Encounter for screening for malignant neoplasm of colon (principal); K57.30 Diverticulosis of large intestine without perforation or abscess without bleeding; K22.70 Barrett's esophagus without dysplasia; K29.50 Unspecified chronic gastritis without bleeding; K21.9 Gastro-esophageal reflux disease without esophagitis; Z88.0 Allergy status to penicillin; Z88.5 Allergy status to narcotic agent; Z79.899 Other long term (current) drug therapy
CPT/HCPCS: 45378; 43239; 88305; J2001; J2704

== ENCOUNTER → 2021-04-08 | Outpatient (CLI) | payer BC ==
--- NOTE | 2021-04-08 11:45 | MM ---
Reason for exam: additional evaluation requested from prior study. Last mammogram was performed 1 year and 4 months ago. History: Patient had first child at age 33. Family history of breast cancer in mother at age 65. Benign US biopsy breast VAD LT of the left breast, October 24, 2015. Benign cyst aspiration of the right breast, 1992. Took hormonal contraceptives for 3 years beginning at age 18. Physical Findings: Nurse did not find any significant physical abnormalities on exam. MG 3D Diag Mammo W/Cad BRUCE Bilateral CC and MLO view(s) were taken. Prior study comparison: December 14, 2019, bilateral MG 3d screening mammo w/cad. July 29, 2018, left breast MG 3d diag mammo w/cad LT. The breast tissue is heterogeneously dense. This may lower the sensitivity of mammography. Benign appearing calcifications in the right breast. Previous mammotome biopsy in the left breast. These results were verbally communicated with the patient and result sheet given to the patient on 04/08/21. ASSESSMENT: Benign, BI-RAD 2 RECOMMENDATION: Routine screening mammogram of both breasts in 1 year.
--- NOTE | 2021-04-08 12:01 | BD ---
EXAMINATION TYPE: Axial Bone Density DATE OF EXAM: 04/08/2021 COMPARISON: NONE CLINICAL HISTORY: Height: 65 IN Weight: 146 LBS RISK FACTORS HISTORY OF: Active: YES Postmenopausal woman: AGE 48 MEDICATIONS: Additional Medications: VIT D EXAM MEASUREMENTS: Bone mineral densitometry was performed using the [employer] System. Bone mineral density as measured about the Lumbar spine is: ----- L1-L4(G/cm2): 1.109 T Score Values are as follows: ----- L2: -0.7 ----- L3: -0.1 ----- L4: -0.7 ----- L1-L4: -0.6 Bone mineral density BASELINE Bone mineral density about the R hip (g/cm2): 0.860 Bone mineral density about the L hip (g/cm2): 0.927 T Score values are as follows: -----R Neck: -1.3 -----L Neck: -0.8 -----R Total: -0.8 -----L Total: -0.8 Bone mineral density BASELINE IMPRESSION: Normal (Values between +1 and -1 indicate normal bone mass). Consider repeating this study in 5 year s or sooner if there is some new clinical indication. NOTE: T-SCORE=SD OF THE YOUNG ADULT MEAN.
== END | disposition home or self-care (01) ==
LOC: RADBDWWP 09:48
PROVIDERS: ATTEND Obstetrics & Gynecology
DX: R92.2 Inconclusive mammogram (principal); R92.1 Mammographic calcification found on diagnostic imaging of breast; Z80.3 Family history of malignant neoplasm of breast
CPT/HCPCS: 77062; 77066; 77080

== ENCOUNTER → 2021-04-12 | Outpatient (CLI) | payer BC ==
[2021-04-12 10:29] VITALS: BP 117/79; PULSE 65; RESP 18; TEMP 98.1
--- NOTE | 2021-04-12 11:33 | P.GSHP ---
History of Present Illness H&P Date: 04/12/21 Chief Complaint: breast pain Sarita is a 50-year-old white female who presents with a complaint of breast pain. She is seen in consultation for Dr. Heath. She underwent a bilateral mammogram on which was benign BIRADS 2. This was reviewed with Dr. Middleton and noted to have dense breast but no lesions which would warrant interventional biopsy. He states the pain is intermittent. It is greatest in the left breast in the upper quadrant region and extends under her arm. She is not complaining of any new lumps masses or nodules in her breast. She did undergo a stereotactic core biopsy of the left breast which was benign several years ago. She is not complaining of any nipple discharge or skin changes. She is not complaining of any recent trauma or infection in the breast. She does not take any hormones. No control pills. She has not had a period for 3 years. He does still have some hot flashes. Caffiene: coffee 2 cups/day nicotine: none chocolate: several times/week Family history: mother: breast cancer at 68 maternal grandmother: cancer ? type Hormonal History: menarche: 11 , bresat fed: yes, age at first : 33 menopause: 48 BCP: 2 years hormones: tried for two weeks and stopped Surgical history: Negative Medical history: omeprazole/GERD Social history: Nicotine: Negative Alcohol: Negative Drugs: Negative - Constitutional Constitutional: Reports sweats - EENT Comment: wears glasses, glaucoma, cataracts Ears: deny: decreased hearing, tinnitus Ears, nose, mouth and throat: Denies headache, Denies sore throat - Breasts Breasts: bilateral: as per HPI - Cardiovascular Cardiovascular: Denies chest pain, Denies shortness of breath - Respiratory Respiratory: Denies cough, Denies 7 - Gastrointestinal Comment: GERD Gastrointestinal: Denies abdominal pain, Denies diarrhea, Denies nausea, Denies vomiting - Genitourinary (Female) Genitourinary: Denies dysuria, Denies hematuria - Menstruation Menstruation: Reports postmenopausal - Musculoskeletal Comment: left shoulder pain, does [employer] - Integumentary Integumentary: Denies pruritus, Denies rash - Neurological Neurological: Denies numbness, Denies weakness - Psychiatric Psychiatric: Reports anxiety - Endocrine Endocrine: Denies fatigue, Denies weight change - Hematologic/Lymphatic Comment: none - Allergic/Immunologic Allergic/Immunologic: Reports as per HPI, Reports seasonal allergies Past Medical History Past Medical History: GERD/Reflux History of Any Multi-Drug Resistant Organisms: None Reported Past Surgical History: No Surgical Hx Reported Additional Past Surgical History / Comment(s): WISDOM TEETH EXTRACTIONS Past Anesthesia/Blood Transfusion Reactions: No Reported Reaction Past Psychological History: No Psychological Hx Reported Smoking Status: Never smoker Past Alcohol Use History: Rare Past Drug Use History: None Reported - Past Family History Mother Family Medical History: Cancer Additional Family Medical History / Comment(s): BREAST CANCER Medications and Allergies Home Medications Medication Instructions Recorded Confirmed Type Latanoprost [Xalatan 0.005%] 1 drop BOTH EYES HS 03/25/20 04/12/21 History Omeprazole 20 mg PO BID #60 cap 03/26/20 04/12/21 Rx Clindamycin [Cleocin] 150 mg PO Q6H 04/12/21 04/12/21 History Allergies Allergy/AdvReac Type Severity Reaction Status Date / Time codeine Allergy Nausea & Verified 04/12/21 10:25 Vomiting Penicillins Allergy Rash/Hives, Verified 04/12/21 10:25 VOMITING Surgical - Exam Vital Signs Temp Pulse Resp BP Pulse Ox 98.1 F 65 18 117/79 100 04/12/21 10:26 04/12/21 10:26 04/12/21 10:26 04/12/21 10:26 04/12/21 10:26 BMI 24 - General no distress - Eyes normal ocular movement - ENT normal pinna, normal nares - Neck no masses, trachea midline - Respiratory normal expansion, normal respiratory effort, clear to auscultation - Cardiovascular Rhythm: regular Heart Sounds: normal: S1, S2 - Abdomen Abdomen: soft - Integumentary normal turgor - Neurologic no disoriented, no combative - Musculoskeletal normal gait, normal posture - Psychiatric oriented to time, oriented to person, oriented to place, speech is normal, memory intact breast exam: BRA: 34DD Inspection: Grade 3 ptosis bilateral Palpation: Right breast: Multiple positional exam fibrocystic changes, no dominant masses or nodules of concern Right axilla: No adenopathy of concern Left breast: Fibrocystic changes, in the upper outer quadrant near the axilla there is increased fullness which is tender to palpation Left axilla: No adenopathy of concern Results Mammogram reviewed with Dr. Middleton Assessment and Plan Assessment: Impression: 1. Fibrocystic breast changes 2. Dense breast 3. Increase fullness and tenderness left breast upper outer quadrant 4. Mastodynia 5. Family history of breast cancer in mother at 68 Plan: 1. Ultrasound area of fullness left upper outer quadrant breast/MRI if negative or FNA 2. Tenderness very possibly due to fibrocystic draped changes were reviewed broke on breast pain 3. Follow-up after ultrasound left breast upper outer quadrant if negative will plan on MRI or FNA 4. counselled to stop caffeine Cc: Dr. Heath encounter 45 minutes, time spent on physical examination, reviewing test, records, and counselling.
== END ==
LOC: WWCWWP 09:52
PROVIDERS: ATTEND Surgery
DX: N60.12 Diffuse cystic mastopathy of left breast (principal); N60.11 Diffuse cystic mastopathy of right breast; R92.2 Inconclusive mammogram; Z80.3 Family history of malignant neoplasm of breast; Z88.0 Allergy status to penicillin; K21.9 Gastro-esophageal reflux disease without esophagitis; N64.59 Other signs and symptoms in breast; Z88.5 Allergy status to narcotic agent

== ENCOUNTER → 2021-04-26 | Outpatient (CLI) | payer BC ==
--- NOTE | 2021-04-26 08:16 | USB ---
Reason for exam: clinical finding. History: Patient had first child at age 33. Family history of breast cancer in mother at age 65. Benign US biopsy breast VAD LT of the left breast, October 24, 2015. Benign cyst aspiration of the right breast, 1992. Took hormonal contraceptives for 3 years beginning at age 18. Physical Findings: Patient had recent breast exam on 04/08/21. US Breast LT Left complete breast ultrasound includes all four quadrants, the retroareolar region and axilla. Finding demonstrates no cystic or solid lesion seen. No sonographic finding. These results were verbally communicated with the patient and result sheet given to the patient on 04/26/21. ASSESSMENT: Benign, BI-RAD 2 RECOMMENDATION: Routine screening mammogram of both breasts in 1 year. Manage on a clinical basis with regard to breast pain.
== END | disposition home or self-care (01) ==
LOC: RADUSWWP 07:15
PROVIDERS: ATTEND Surgery
DX: N64.4 Mastodynia (principal); Z80.3 Family history of malignant neoplasm of breast

== ENCOUNTER → 2022-01-29 | Outpatient (CLI) | payer BC ==
--- NOTE | 2022-01-29 07:54 | CT ---
EXAMINATION TYPE: CT brain wo con DATE OF EXAM: 01/29/2022 COMPARISON: None HISTORY: Cervicalgia, Radiculopathy CT DLP: [address] of the brain was performed. The ventricles, basal cisterns and sulci overlying the cerebral convexities demonstrate mild enlargem ent. There is no evidence for intracranial hemorrhage or sulcal effacement. There is decreased attenuation about the periventricular white matter and deep white matter of both c erebral hemispheres, compatible with chronic small vessel ischemia. Differential diagnosis does inclu de demyelination. No mass effects are seen.No midline shift. Osseous calvarium is intact. If symptoms persist consider MRI. IMPRESSION: 1. Age related atrophic and chronic small vessel ischemic change without acute intracranial process s een at this time.
== END | disposition home or self-care (01) ==
LOC: RADCTMAIN 07:02
PROVIDERS: ATTEND Orthopaedic Surgery Orthopaedic Surgery of the Spine
DX: I67.82 Cerebral ischemia (principal); G31.89 Other specified degenerative diseases of nervous system
CPT/HCPCS: 70450

== ENCOUNTER 2022-02-05 13:37 | Emergency (ER) | payer BC ==
[2022-02-05 14:05] VITALS: BP 118/81; PULSE 99; RESP 18; TEMP 98.4
--- NOTE | 2022-02-05 16:39 | ED ---
Weakness HPI - General Chief complaint: Weakness Stated complaint: Numbness/Herniated Disc Time Seen by Provider: 02/05/22 16:00 Source: patient, family Mode of arrival: wheelchair - History of Present Illness Initial comments: 51-year-old female with a history of cervical disc disease currently being treated by Dr. Diana who presents with complaints of chronic lower extremity numbness and weakness which seemed to gotten worse over last several days or longer. She does not recall any activity other that she did have physical therapy this week for her neck no trouble with urination. She states she's not been able go the bathroom was resected bowel movements today but she's had decreased oral intake today also. No fevers chills nausea vomiting sweats she is on her second round of steroids for the above cervical problem. She states the numbness isn't she experiences seen is to go up into her anterior abdomen. MD Complaint: focal weakness, numbness - Related Data Home Medications Medication Instructions Recorded Confirmed Latanoprost [Xalatan 0.005%] 1 drop BOTH EYES HS 03/25/20 02/05/22 Acetaminophen Tab [Tylenol Tab] 1,000 mg PO Q6HR PRN 02/05/22 02/05/22 Cyclobenzaprine HCl 5 - 10 mg PO HS PRN 02/05/22 02/05/22 Omeprazole Magnesium [PriLOSEC OTC] 20 mg PO DAILY 02/05/22 02/05/22 predniSONE See Taper PO DIRECTED 02/05/22 02/05/22 Allergies Allergy/AdvReac Type Severity Reaction Status Date / Time Penicillins Allergy Rash/Hives, Verified 02/05/22 16:15 vomiting codeine AdvReac Nausea & Verified 02/05/22 16:15 Vomiting tramadol AdvReac Nausea & Verified 02/05/22 16:15 Vomiting Review of Systems ROS Statement: Those systems with pertinent positive or pertinent negative responses have been documented in the HPI. ROS Other: All systems not noted in ROS Statement are negative. Past Medical History Past Medical History: GERD/Reflux Additional Past Medical History / Comment(s): cervical herniation History of Any Multi-Drug Resistant Organisms: None Reported Past Surgical History: No Surgical Hx Reported Additional Past Surgical History / Comment(s): WISDOM TEETH EXTRACTIONS Past Anesthesia/Blood Transfusion Reactions: No Reported Reaction Past Psychological History: No Psychological Hx Reported Smoking Status: Never smoker Past Alcohol Use History: Rare Past Drug Use History: None Reported - Past Family History Mother Family Medical History: Cancer Additional Family Medical History / Comment(s): BREAST CANCER General Exam - General Exam Comments Initial Comments: This is a well-developed well-nourished awake alert oriented 3 female General appearance: alert, anxious Head exam: Present: atraumatic, normocephalic, normal inspection Eye exam: Present: normal appearance, PERRL, EOMI. Absent: scleral icterus, conjunctival injection, periorbital swelling ENT exam: Present: normal exam, mucous membranes moist Neck exam: Present: normal inspection, full ROM, other (No stridor JVD or bruits). Absent: tenderness, meningismus, lymphadenopathy Respiratory exam: Present: normal lung sounds bilaterally. Absent: respiratory distress, wheezes, rales, rhonchi, stridor Cardiovascular Exam: Present: regular rate, normal rhythm, normal heart sounds. Absent: systolic murmur, diastolic murmur, rubs, gallop, clicks GI/Abdominal exam: Present: soft, normal bowel sounds. Absent: distended, tenderness, guarding, rebound, rigid Rectal exam: Present: deferred Extremities exam: Present: normal inspection, full ROM, normal capillary refill. Absent: tenderness, pedal edema, joint swelling, calf tenderness Back exam: Present: normal inspection, other (Slight tenderness to palpation lateral to the mid to lower lumbar spinous but no overt midline tenderness. This pain also was not reproducible) Neurological exam: Present: alert, oriented X3, CN II-XII intact, reflexes normal. Absent: motor sensory deficit Psychiatric exam: Present: normal affect, normal mood Skin exam: Present: warm, dry, intact, normal color. Absent: rash Course Vital Signs 02/05/22 14:00 Temperature 98.4 F Pulse Rate 99 Respiratory 18 Rate Blood Pressure 118/81 O2 Sat by Pulse 97 Oximetry Medical Decision Making - Medical Decision Making I did discuss findings the patient and her . Patient will be discharged again the clinical exam was unremarkable. Question whether some of the medication may have had an effect patient is instructed to call Dr. Diana tomorrow morning for guidance. - Radiology Data Radiology results: report reviewed (Imaging reviewed no evidence of acute findings evidence of degenerative change please see the complete report), image reviewed Disposition Clinical Impression: Back pain, Feared condition not demonstrated Disposition: HOME SELF-CARE Condition: Good Instructions (If sedation given, give patient instructions): Low Back Strain (ED) Is patient prescribed a controlled substance at d/c from ED?: No Referrals: Ulises Rojas MD [Primary Care Provider] - 1-2 days Nimesh Diana DO [Doctor of Osteopathic Medicine] - 1-2 days
--- NOTE | 2022-02-05 18:02 | CT ---
EXAMINATION TYPE: CT lumbar spine wo con DATE OF EXAM: 02/05/2022 5:08 PM COMPARISON: None available HISTORY: low back pain, bilateral leg numbness. no recent injury. CT DLP: 573.1 mGycm Technique: Noncontrast axial CT images of the lumbar spine were obtained with images provided in bone and soft tissue algorithm. Coronal and sagittal reformats were provided and reviewed. Automated do se control was used for this exam. Findings: The bone mineralization is age-appropriate. There is no acute fracture or dislocation of the imaged osseous structures. There is mild dextroconve x scoliosis centered at L1-L2. There is multilevel mild disc at narrowing. L3 and L4 superior endplat e Schmorl's nodes seen. There is mild facet arthropathy. The vertebral body heights are grossly maint ained. No significant paraspinal soft tissue abnormality. Impression: Mild lumbar spondylosis with dextroconvex scoliosis are without acute abnormality.
== END 2022-02-05 18:54 | disposition home or self-care (01) ==
LOC: EC 13:37
DX: M54.50 Low back pain, unspecified (principal); K21.9 Gastro-esophageal reflux disease without esophagitis; Z79.899 Other long term (current) drug therapy
CPT/HCPCS: 72131; 99285

== ENCOUNTER 2022-02-08 04:24 | Observation (INO) | payer BC ==
--- NOTE | 2022-02-08 04:55 | ED ---
Chest Pain HPI - General Chief Complaint: Chest Pain Stated Complaint: poss seizure Time Seen by Provider: 02/08/22 04:26 Source: patient, family, RN notes reviewed, old records reviewed Mode of arrival: ambulatory Limitations: no limitations - History of Present Illness Initial Comments: This is a 51-year-old female to the emergency department for evaluation. A she has a few complaints today. No significant medical history takes no significant medications. Patient has been following up with orthopedics with an MRI of her neck she's been following up with primary care regarding headaches with a computed tomography scan of her head as well as general disc disease no trauma. Today patient presents with right-sided neck pain neck back pain that brought her to the ER and in the ER while waiting to be seen she developed left-sided chest pain. No shortness of breath no sweating no other complaints MD Complaint: chest pain -: week(s) Onset: awoke with symptoms Pain Location: left chest Pain Radiation: neck Severity: moderate Severity scale (1-10): 4 Quality: aching, sharp Consistency: constant Improves With: nothing Worsens With: nothing Anginal Symptoms: other (none) Other Symptoms: other (none) Treatments Prior to Arrival: none - Related Data Home Medications Medication Instructions Recorded Confirmed Latanoprost [Xalatan 0.005%] 1 drop BOTH EYES HS 03/25/20 02/08/22 Acetaminophen Tab [Tylenol] 1,000 mg PO Q6HR PRN 02/05/22 02/08/22 Cyclobenzaprine HCl 5 - 10 mg PO HS PRN 02/05/22 02/08/22 Omeprazole Magnesium [PriLOSEC OTC] 20 mg PO DAILY 02/05/22 02/08/22 Allergies Allergy/AdvReac Type Severity Reaction Status Date / Time Penicillins Allergy Rash/Hives, Verified 02/08/22 10:36 vomiting codeine AdvReac Nausea & Verified 02/08/22 10:36 Vomiting tramadol AdvReac Nausea & Verified 02/08/22 10:36 Vomiting Review of Systems ROS Statement: Those systems with pertinent positive or pertinent negative responses have been documented in the HPI. ROS Other: All systems not noted in ROS Statement are negative. EKG Findings - EKG Comments: EKG Findings:: EKG shows sinus 77 OR 128 QRS 60 QTC 386 Past Medical History Past Medical History: GERD/Reflux Additional Past Medical History / Comment(s): cervical herniation, headaches History of Any Multi-Drug Resistant Organisms: None Reported Past Surgical History: No Surgical Hx Reported Additional Past Surgical History / Comment(s): WISDOM TEETH EXTRACTIONS Past Anesthesia/Blood Transfusion Reactions: No Reported Reaction Past Psychological History: No Psychological Hx Reported Smoking Status: Never smoker Past Alcohol Use History: Rare Past Drug Use History: None Reported - Past Family History Mother Family Medical History: Cancer Additional Family Medical History / Comment(s): BREAST CANCER General Exam Limitations: no limitations General appearance: alert, in no apparent distress, anxious Head exam: Present: atraumatic, normocephalic, normal inspection Eye exam: Present: normal appearance, PERRL, EOMI. Absent: scleral icterus, conjunctival injection, periorbital swelling ENT exam: Present: normal exam, mucous membranes moist Neck exam: Present: normal inspection. Absent: tenderness, meningismus, lymphadenopathy Respiratory exam: Present: normal lung sounds bilaterally. Absent: respiratory distress, wheezes, rales, rhonchi, stridor Cardiovascular Exam: Present: normal rhythm, tachycardia, normal heart sounds. Absent: systolic murmur, diastolic murmur, rubs, gallop, clicks GI/Abdominal exam: Present: soft, normal bowel sounds. Absent: distended, tenderness, guarding, rebound, rigid Extremities exam: Present: normal inspection, full ROM, normal capillary refill. Absent: tenderness, pedal edema, joint swelling, calf tenderness Back exam: Present: normal inspection Neurological exam: Present: alert, oriented X3, CN II-XII intact Psychiatric exam: Present: normal affect, normal mood Skin exam: Present: warm, dry, intact, normal color. Absent: rash Course Vital Signs 02/08/22 02/08/22 02/08/22 04:35 05:50 09:16 Temperature 97.2 F L Pulse Rate 110 H 70 70 Respiratory 22 18 16 Rate Blood Pressure 116/77 114/77 O2 Sat by Pulse 97 96 96 Oximetry - Reevaluation(s) Reevaluation #1: 02/08/22 05:25 Medical record is reviewed Reevaluation #2: 02/08/22 07:25 Patient has no chest pain or shortness of breath currently, no episodes of diaphoresis. Reevaluation #3: 02/08/22 07:25 Patient still concern for neck pain back pain and the fact that she is pretty convinced that she had a seizure tonight. Patient doesn't feel comfortable with discharge home secondary to seizure-like activity Reevaluation #4: 02/08/22 07:25 Patient informed of results here in the emergency department, questions answered Reevaluation #5: Studies CT brain C-spine is negative for acute disease - Consultations Consultation #1: Spoke with sound physicians agreeable to admit this patient Chest Pain MDM - MDM 51 female to the emergency department for evaluation history of cervical radiculopathy and neck pain follow-up as an outpatient with orthopedics with multiple avenues of imaging including CT and MRI. Patient coming in today with persistent neck pain chest pain that developed while in the emergency department waiting room. Sodium state chest pain is improved troponin EKG negative. Chest pain is atypical in nature patient also admits that she did have seizure tonight and would like evaluation by neurology Disposition Clinical Impression: New onset seizure, Cervicalgia, Chest pain, atypical, Left arm pain Disposition: ADMITTED IP TO THIS HOSP Condition: Good Is patient prescribed a controlled substance at d/c from ED?: No
[2022-02-08 05:36] LABS: Basophils % (A) 0 %; Eosinophils # (A) 0.1 k/uL (0-0.7); Eosinophils % (A) 1 %; HCT 47.1 % (34.0-46.0); HGB 15.6 gm/dL (11.4-16.0); Lymphocytes # (A) 1.9 k/uL (1.0-4.8); Lymphocytes % (A) 29 %; MCH 31.4 pg (25.0-35.0); MCHC 33.1 g/dL (31.0-37.0); MCV 94.7 fL (80.0-100.0); Mean Platelet Volume 7.6; Monocytes # (A) 0.4 k/uL (0-1.0); Monocytes % (A) 6 %; Neutrophils % (A) 61 %; Platelet Count 280 k/uL (150-450); RBC 4.97 m/uL (3.80-5.40); RDW 12.7 % (11.5-15.5); WBC 6.4 k/uL (3.8-10.6)
[2022-02-08 05:49] LABS: ALT 15 U/L (4-34); AST 14 U/L (14-36); African American GFR (CKD) >90 (>60 ml/min/1.73 sqM); Albumin 4.6 g/dL (3.5-5.0); Alkaline Phosphatase 62 U/L (38-126); Anion Gap 9 mmol/L; Blood Urea Nitrogen 13 mg/dL (7-17); Calcium 9.5 mg/dL (8.4-10.2); Carbon Dioxide 28 mmol/L (22-30); Chloride 102 mmol/L (98-107); Glucose 102 mg/dL (74-99); Lipase 105 U/L (23-300); Magnesium 2.2 mg/dL (1.6-2.3); Non-African American GFR(CKD) >90 (>60 ml/min/1.73 sqM); Partial Thromboplastin Time 24.2 sec (22.0-30.0); Potassium 3.9 mmol/L (3.5-5.1); Prothrombin Time 10.8 sec (9.0-12.0); Sodium 139 mmol/L (137-145); Total Bilirubin 0.6 mg/dL (0.2-1.3); Total Protein 7.3 g/dL (6.3-8.2)
[2022-02-08] MEDS ORDERED: DIAZEPAM 5 MG/ML 2 ML INJ IVP STA (06:16)
[2022-02-08] MEDS ORDERED: KETOROLAC 15 MG/ML 1 ML VIAL IVP STA (06:16)
[2022-02-08] MEDS ORDERED: NALOXONE 0.4 MG/ML 1 ML VIAL IV PRN ×2 (07:20→08:40)
--- NOTE | 2022-02-08 08:04 | CT ---
EXAMINATION TYPE: CT brain cspine wo con DATE OF EXAM: 02/08/2022 COMPARISON: Head CT dated 01/29/2022 HISTORY: Seizure CT DLP: 1211.5 mGycm Automated exposure control for dose reduction was used. TECHNIQUE: CT scan of the head and cervical spine are performed without contrast. FINDINGS: There is no acute intracranial hemorrhage, mass effect, or midline shift identified. The ventricles and sulci are within normal limits in size. The globes are intact and the visualized sin uses are clear. Cervical spine is visualized in its entirety from C1 through upper thoracic levels and demonstrates s atisfactory alignment without evidence of acute fracture or dislocation. Prevertebral soft tissue ap pears within normal limits. The C1-C2 articulation is unremarkable. Mild degenerative disease at th e C6-7 level. No bony encroachment of the cervical spinal canal or neural foramina. IMPRESSION: 1. There is no acute fracture or dislocation evident in the cervical spine. 2. No acute intracranial hemorrhage, mass effect, or midline shift is seen.
--- NOTE | 2022-02-08 08:56 | P.HPIM ---
History of Present Illness H&P Date: 02/08/22 Chief Complaint: seizure 51 y/o female presented to the ER due to waking up last night feeling that she was having muscle jerks all over her body. She felt it was a seizure. She denied tongue biting or urinary incontinence. No history of seizures in the past. Over the last several weeks she has been doing with severe neck pain, tension headaches and muscle spasms in the upper shoulder areas. She was evaluated by her primary care physician and Dr. Diana from orthopedics, was given a steroid taper which she is supposed to finish today. Patient was also referred to physical therapy which helped her symptoms but she states that after the physical therapist tried to stretch her neck by pulling her head upwards she started having right-sided headaches and a blurry spot on the right eye.. Patient states that about a year ago she was practicing in martial art class and she fell and hit her head. She did not have any symptoms afterwards. She is concerned that the fall could have caused her current seizure. In addition to the above symptoms she was having left-sided chest pain that radiated to her left shoulder and back to her neck. She thinks that the pain in his due to muscle spasms which she had for a long time and currently are worse. She also think that she was having bilateral leg numbness. No focal weakness. No loss of consciousness. No slurred speech. She denied recent illness, no fevers or chills. No shortness of breath. No nausea or vomiting. Evaluation in the emergency department was with head and neck computed tomography scan was negative. Labs were unremarkable. She was admitted for further evaluation by neurology. Review of Systems Complete review of system was performed, negative except for what is stated in HPI Past Medical History Past Medical History: GERD/Reflux Additional Past Medical History / Comment(s): cervical herniation, headaches History of Any Multi-Drug Resistant Organisms: None Reported Past Surgical History: No Surgical Hx Reported Additional Past Surgical History / Comment(s): WISDOM TEETH EXTRACTIONS Past Anesthesia/Blood Transfusion Reactions: No Reported Reaction Past Psychological History: No Psychological Hx Reported Smoking Status: Never smoker Past Alcohol Use History: Rare Past Drug Use History: None Reported - Past Family History Mother Family Medical History: Cancer Additional Family Medical History / Comment(s): BREAST CANCER Medications and Allergies Home Medications Medication Instructions Recorded Confirmed Type Latanoprost [Xalatan 0.005%] 1 drop BOTH EYES HS 03/25/20 02/05/22 History Acetaminophen Tab [Tylenol Tab] 1,000 mg PO Q6HR PRN 02/05/22 02/05/22 History Cyclobenzaprine HCl 5 - 10 mg PO HS PRN 02/05/22 02/05/22 History Omeprazole Magnesium [PriLOSEC OTC] 20 mg PO DAILY 02/05/22 02/05/22 History predniSONE See Taper PO DIRECTED 02/05/22 02/05/22 History Allergies Allergy/AdvReac Type Severity Reaction Status Date / Time Penicillins Allergy Rash/Hives, Verified 02/08/22 04:40 vomiting codeine AdvReac Nausea & Verified 02/08/22 04:40 Vomiting tramadol AdvReac Nausea & Verified 02/08/22 04:40 Vomiting Physical Exam Vitals: Vital Signs Temp Pulse Resp BP Pulse Ox 02/08/22 05:50 70 18 96 02/08/22 04:35 97.2 F L 110 H 22 116/77 97 Intake and Output 02/07/22 02/08/22 02/08/22 22:59 06:59 14:59 Other: Weight 63.503 kg Constitutional: No acute distress, conversant, pleasant Eyes:Anicteric sclerae, moist conjunctiva, no lid-lag, PERRLA, ENMT: Oropharynx clear, no erythema, exudates Neck: Supple, FROM, no masses, or JVD, No carotid bruits, No thyromegaly Lungs: Clear to auscultation, Clear to percussion, Normal respiratory effort, no accessory muscle use Cardiovascular: Heart regular in rate and rhythm, No murmurs, gallops, or rubs, No peripheral edema Abdominal: Soft, Nontender, no guarding, rebound or rigidity, Normoactive bowel sounds, No hepatomegaly, No splenomegaly, No palpable mass Skin: Normal temperature, tone, texture, turgor, no induration, No subcutaneous nodules, No rash, lesions, No ulcers Extremities: No digital cyanosis, No clubbing, Pedal pulses intact and symmetrical, Radial pulses intact and symmetrical, No calf tenderness Psychiatric: Alert and oriented to person, place and time, appropriate affect, intact judgement Neuro: Muscles Strength 5/5 in all 4 extremities, Sensation to light touch grossly present throughout, Cranial nerves II-XII grossly intact, no focal sensory deficits Results CBC & Chem 7: 02/08/22 04:53 02/08/22 04:53 Labs: Abnormal Lab Results - Last 24 Hours (Table) 02/08/22 02/08/22 Range/Units 04:53 04:53 Hct 47.1 H (34.0-46.0) % Glucose 102 H (74-99) mg/dL Assessment and Plan Plan: Myoclonus, possible seizure ? possibly sec to flexeril Evaluation by neurology EEG Brain MRI Neuro checks every 4 hours Chronic neck pain Finishing steroid taper Discontinue flexeril as it could cause seizure GERD Continue PPI Admit to observation.
[2022-02-08] MEDS ORDERED: PANTOPRAZOLE 40 MG TABLET PO SCH (09:00)
[2022-02-08 10:25] VITALS: RESP 18
[2022-02-08 13:54] VITALS: BP 95/60; PULSE 60; TEMP 98.6
[2022-02-08] MEDS ORDERED: IBUPROFEN 400 MG TAB PO STA (16:13)
--- NOTE | 2022-02-08 16:48 | P.CNNES ---
History of Present Illness Consult date: 02/08/22 Reason for Consult: New-onset seizure History of Present Illness: The patient is a 51-year-old, right-handed female who is seen in neur ologic consultation on February 08, 2022, via teleneurology. The patient came into the emergency department this morning after waking up noticing that her muscles were spasming. She felt she was having a seizure. She says that she woke several times during the night and noted her muscles to be in spasm. The patient denies confusion upon awakening. She denies tongue biting and loss of bowel and bladder control. The patient has numerous other pain related issues. Patient reports that in November, she was diagnosed with a herniated disc in her neck. She then reports that since having Covid 19, she has had a tremendous amount of pain throughout her body. She reports pain in her shoulders, neck, arms and legs. Patient also reports numbness and tingling in her legs. Patient reportedly had an MRI of her cervical spine done at an orthopedic physician's office. This was where the herniated disc was diagnosed. Patient is unable to tell me what level this herniated disc is at. Patient also reports having tension headaches, primarily right-sided. She says that her right neck is very sore and the pain radiates up into her head. She says she is able to feel a "tight knot" in her neck. The patient did take part in physical therapy. She says that traction was applied to her neck and this worsened her symptoms. Since that time, she has done very little with physical therapy. Patient also reports pressure behind her right eye, related to the headache. She also reports seeing a "spot" in the middle of the vision of her right eye. Patient also reports difficulty with speech on occasion. She reports markedly diminished sensation of taste and smell, since her Covid [address] scan of the brain performed in the emergency department is negative for acute hemorrhage and infarct. CT scan of the cervical spine reveals no signs of acute fracture or degenerative change. Since admission, patient states that she has had no further muscle spasms. She did receive a dose of Toradol and Valium in the emergency department. Past Medical History Past Medical History: GERD/Reflux Additional Past Medical History / Comment(s): cervical herniation, headaches, glaucoma History of Any Multi-Drug Resistant Organisms: None Reported Past Surgical History: No Surgical Hx Reported Additional Past Surgical History / Comment(s): WISDOM TEETH EXTRACTIONS Past Anesthesia/Blood Transfusion Reactions: No Reported Reaction Additional Past Anesthesia/Blood Transfusion Reaction / Comment(s): wakes up slow Past Psychological History: No Psychological Hx Reported Smoking Status: Never smoker Past Alcohol Use History: Rare Past Drug Use History: None Reported - Past Family History Mother Family Medical History: Cancer Additional Family Medical History / Comment(s): BREAST CANCER Medications and Allergies Home Medications Medication Instructions Recorded Confirmed Type Latanoprost [Xalatan 0.005%] 1 drop BOTH EYES HS 03/25/20 02/08/22 History Acetaminophen Tab [Tylenol Tab] 1,000 mg PO Q6HR PRN 02/05/22 02/08/22 History Cyclobenzaprine HCl 5 - 10 mg PO HS PRN 02/05/22 02/08/22 History Omeprazole Magnesium [PriLOSEC OTC] 20 mg PO DAILY 02/05/22 02/08/22 History Allergies Allergy/AdvReac Type Severity Reaction Status Date / Time Penicillins Allergy Rash/Hives, Verified 02/08/22 10:36 vomiting codeine AdvReac Nausea & Verified 02/08/22 10:36 Vomiting tramadol AdvReac Nausea & Verified 02/08/22 10:36 Vomiting Physical Examination - Vital Signs Vital Signs: Vital Signs Temp Pulse Pulse Resp BP BP Pulse Ox 02/08/22 10:24 98 F 77 18 96/60 97 02/08/22 09:16 70 16 114/77 96 02/08/22 05:50 70 18 96 02/08/22 04:35 97.2 F L 110 H 22 116/77 97 Intake and Output 02/07/22 02/08/22 02/08/22 22:59 06:59 14:59 Other: Weight 63.503 kg 63.503 kg Gen.: Patient is reclining in the bed. She is well-nourished, well-developed and in no acute distress. The patient has her own blanket from home. HEENT: Head is atraumatic, normocephalic. Fundus not visualized. There is no scleral icterus. Mucous membranes are moist. There is no tenderness to palpation of the occipital notches. Neck: Without carotid bruits Heart: Regular rate and rhythm Lungs: Clear to auscultation Extremities: Without edema Neurological examination Mental status: The patient is awake, alert and oriented 3. Her speech is clear. There is no dysarthria or aphasia. Cranial nerves: Pupils are equal at 4 mm and reactive. Visual gary are full to confrontation. Extraocular movements are intact. There is no nystagmus. Facial sensation is intact. There is no facial asymmetry. Hearing is grossly intact. Uvula and palate are midline. Shoulder shrug is symmetric. Tongue protrudes midline. Motor: Strength is 5/5 throughout. Coordination: Finger to nose and rapid alternating movements are intact. Sensation: Grossly intact to light touch throughout. There is no extinction with double simultaneous stimulation. Deep tendon reflexes: 2+/4+ throughout Gait: Not assessed Results - Laboratory Findings CBC and BMP: 02/08/22 04:53 02/08/22 04:53 Abnormal Lab Findings: Abnormal Labs 02/08/22 03 04:53 04:53 Hct 47.1 H Glucose 102 H Assessment and Plan Assessment: 1. The patient describes a generalized muscle spasms which are waking her from sleep. Because the patient is being awakened by muscle spasm, this is not consistent with seizure activity. The patient reports being awake and aware that her muscles are spasming. She says the spasms are generalized. She denies tongue biting and loss of bowel and bladder control. 2. Diffuse, chronic pain Plan: 1. EEG has been canceled 2. MRI of brain with and without gadolinium is not necessary, as it was ordered for part of a seizure workup.(tests has been canceled) 3. Advised the patient to take Motrin 800 mg for pain and muscle spasms 4. Advised the patient to follow through with her scheduled neurology appointment 5. The patient is neurologically stable for discharge Thank you for allowing us to participate in the care of this patient Time with Patient: Greater than 30 (spent 40 minutes with patient via telemedicine)
--- NOTE | 2022-02-08 16:49 | P.DS ---
Providers Date of admission: 02/08/22 07:21 Attending physician: Ben Lindsey MD Consults: 02/08/22 07:21 Consult Physician Routine Consulting Provider: Dana Hermosillo Consult Reason/Comments: Rupal Do you want consulting provider notified?: Yes Primary care physician: [facility] Course: 51 y/o female presented to the ER due to waking up last night feeling that she was having muscle jerks all over her body. She felt it was a seizure. She denied tongue biting or urinary incontinence. No history of seizures in the past. Over the last several weeks she has been doing with severe neck pain, tension headaches and muscle spasms in the upper shoulder areas. She was evaluated by her primary care physician and Dr. Diana from orthopedics, was given a steroid taper which she is supposed to finish today. Patient was also referred to physical therapy which helped her symptoms but she states that after the physical therapist tried to stretch her neck by pulling her head upwards she started having right-sided headaches and a blurry spot on the right eye.. Patient states that about a year ago she was practicing in martial art class and she fell and hit her head. She did not have any symptoms afterwards. She is concerned that the fall could have caused her current seizure. In addition to the above symptoms she was having left-sided chest pain that radiated to her left shoulder and back to her neck. She thinks that the pain in his due to muscle spasms which she had for a long time and currently are worse. She also think that she was having bilateral leg numbness. No focal weakness. No loss of consciousness. No slurred speech. She denied recent illness, no fevers or chills. No shortness of breath. No nausea or vomiting. Evaluation in the emergency department was with head and neck computed tomography scan was negative. Labs were unremarkable. She was admitted for further evaluation by neurology. Upon admission patient was evaluated by neurology service who did not think that she had a seizure. Therefore no further workup was indicated according to neurology. Her symptoms were most likely secondary to muscle spasms. Patient was cleared by neurology for discharge. She will be discharged home in stable condition. Patient Condition at Discharge: Good Plan - Discharge Summary Discharge Rx Participant: No New Discharge Prescriptions: Continue Latanoprost [Xalatan 0.005%] 1 drop BOTH EYES HS Acetaminophen Tab [Tylenol] 1,000 mg PO Q6HR PRN PRN Reason: Pain Omeprazole Magnesium [PriLOSEC OTC] 20 mg PO DAILY Cyclobenzaprine HCl 5 - 10 mg PO HS PRN PRN Reason: Muscle Pain Discharge Medication List Latanoprost [Xalatan 0.005%] 1 drop BOTH EYES HS 03/25/20 [History] Acetaminophen Tab [Tylenol] 1,000 mg PO Q6HR PRN 02/05/22 [History] Cyclobenzaprine HCl 5 - 10 mg PO HS PRN 02/05/22 [History] Omeprazole Magnesium [PriLOSEC OTC] 20 mg PO DAILY 02/05/22 [History] Follow up Appointment(s)/Referral(s): Ulises Rojas MD [Primary Care Provider] - 1-2 days Patient Instructions/Handouts: Seizure/Epilepsy Discharge Instructions & Follow-Up
== END 2022-02-08 17:25 | disposition home or self-care (01) ==
LOC: EC 04:24 → 6NMEDSUR 07:21
PROVIDERS: ADMIT Internal Medicine; ATTEND Internal Medicine
DX: M62.838 Other muscle spasm (principal); G89.29 Other chronic pain; G25.3 Myoclonus; K21.9 Gastro-esophageal reflux disease without esophagitis; R07.89 Other chest pain; M54.12 Radiculopathy, cervical region; M50.20 Other cervical disc displacement, unspecified cervical region; G44.209 Tension-type headache, unspecified, not intractable; H53.9 Unspecified visual disturbance; H40.9 Unspecified glaucoma; Z79.899 Other long term (current) drug therapy; Z88.0 Allergy status to penicillin; Z88.5 Allergy status to narcotic agent; Z86.16 Personal history of COVID-19; Z71.9 Counseling, unspecified; Z80.3 Family history of malignant neoplasm of breast
CPT/HCPCS: 96374; 96375; 99285; 36415; 93005; 83880; 80053; 83690; 83735; 84484; 85025; 85610; 85730; 72125; 70450; G0378; J3360; J1885

== ENCOUNTER → 2022-06-03 | Outpatient (CLI) | payer BC ==
--- NOTE | 2022-06-05 08:05 | MM ---
Reason for Exam: Screening (asymptomatic). Last mammogram was performed 1 year(s) and 2 month(s) ago. Patient History: Menarche at age 11. First Full-Term at age 33. Late child-bearing (after 30). Hormonal Contraceptives for 3 years from age 18 until age 21. 1992, Benign Cyst Aspiration on the right side. 10/24/2015, Benign Core Biopsy on the left side. Mother had breast cancer, age 65. Risk Values: Ann 5 year model risk: 2.8%. NCI Lifetime model risk: 21.1%. Prior Study Comparison: 07/29/2018 Left Diagnostic Mammogram, [facility]. 12/14/2019 Bilateral Screening Mammogram, [facility]. 04/08/2021 Bilateral Diagnostic Mammogram, [facility]. Tissue Density: The breast tissue is heterogeneously dense. This may lower the sensitivity of mammography. Findings: Analyzed By CAD. There are coarse calcifications within the right breast. Core marker is within the left breast. Stable chronic nodularity is within the left breast. No suspicious groups of microcalcifications, spiculated or lobular masses, architectural distortion or other secondary signs of malignancy are mammographically apparent. Overall Assessment: Benign, BI-RAD 2 Management: Screening Mammogram of both breasts in 1 year. A negative mammogram report should not preclude additional follow up of suspicious palpable abnormalities. Patient should continue monthly self breast exam. A clinical breast exam by your physician is recommended on an annual basis and results should be correlated with mammographic findings. Electronically signed and approved by: Rory Anand D.O. Radiologis
== END | disposition home or self-care (01) ==
LOC: RADMAMWWP 13:59
PROVIDERS: ATTEND Obstetrics & Gynecology
DX: Z12.31 Encounter for screening mammogram for malignant neoplasm of breast (principal); Z80.3 Family history of malignant neoplasm of breast
CPT/HCPCS: 77063; 77067

== ENCOUNTER 2022-08-20 04:34 | Observation (INO) | payer BC ==
--- NOTE | 2022-08-20 04:56 | ED ---
General Adult HPI - General Chief complaint: GI Bleed Stated complaint: Blood in stool Time Seen by Provider: 08/20/22 04:55 Source: patient Mode of arrival: ambulatory Limitations: no limitations - Related Data Home Medications Medication Instructions Recorded Confirmed Latanoprost [Xalatan 0.005%] 1 drop BOTH EYES HS 03/25/20 02/08/22 Acetaminophen Tab [Tylenol] 1,000 mg PO Q6HR PRN 02/05/22 02/08/22 Cyclobenzaprine HCl 5 - 10 mg PO HS PRN 02/05/22 02/08/22 Omeprazole Magnesium [PriLOSEC OTC] 20 mg PO DAILY 02/05/22 02/08/22 Allergies Allergy/AdvReac Type Severity Reaction Status Date / Time Penicillins Allergy Rash/Hives, Verified 08/20/22 04:39 vomiting codeine AdvReac Nausea & Verified 08/20/22 04:39 Vomiting tramadol AdvReac Nausea & Verified 08/20/22 04:39 Vomiting Review of Systems ROS Statement: Those systems with pertinent positive or pertinent negative responses have been documented in the HPI. ROS Other: All systems not noted in ROS Statement are negative. Past Medical History Past Medical History: GERD/Reflux Additional Past Medical History / Comment(s): cervical herniation, headaches History of Any Multi-Drug Resistant Organisms: None Reported Past Surgical History: No Surgical Hx Reported Additional Past Surgical History / Comment(s): WISDOM TEETH EXTRACTIONS Past Anesthesia/Blood Transfusion Reactions: No Reported Reaction Additional Past Anesthesia/Blood Transfusion Reaction / Comment(s): wakes up slow Past Psychological History: Anxiety, Depression Smoking Status: Never smoker Past Alcohol Use History: Rare Past Drug Use History: None Reported - Past Family History Mother Family Medical History: Cancer Additional Family Medical History / Comment(s): BREAST CANCER General Exam Limitations: no limitations Course Vital Signs 08/20/22 04:37 Temperature 97.7 F Pulse Rate 86 Respiratory 16 Rate Blood Pressure 120/81 O2 Sat by Pulse 98 Oximetry Medical Decision Making - Lab Data Result diagrams: 08/20/22 05:12 08/20/22 05:12 Lab Results 08/20/22 08/20/22 08/20/22 Range/Units 05:12 05:12 05:12 WBC 6.6 (3.8-10.6) k/uL RBC 4.54 (3.80-5.40) m/uL Hgb 13.8 (11.4-16.0) gm/dL Hct 43.4 (34.0-46.0) % MCV 95.6 (80.0-100.0) fL MCH 30.5 (25.0-35.0) pg MCHC 31.9 (31.0-37.0) g/dL RDW 12.5 (11.5-15.5) % Plt Count 220 (150-450) k/uL MPV 7.9 Neutrophils % 69 % Lymphocytes % 19 % Monocytes % 6 % Eosinophils % 4 % Basophils % 1 % Neutrophils # 4.5 (1.3-7.7) k/uL Lymphocytes # 1.3 (1.0-4.8) k/uL Monocytes # 0.4 (0-1.0) k/uL Eosinophils # 0.3 (0-0.7) k/uL Basophils # 0.1 (0-0.2) k/uL PT 10.8 (9.0-12.0) sec INR 1.0 (<1.2) APTT 25.3 (22.0-30.0) sec Sodium 141 (137-145) mmol/L Potassium 3.8 (3.5-5.1) mmol/L Chloride 100 (98-107) mmol/L Carbon Dioxide 32 H (22-30) mmol/L Anion Gap 9 mmol/L BUN 18 H (7-17) mg/dL Creatinine 0.86 (0.52-1.04) mg/dL Est GFR (CKD-EPI)AfAm >90 (>60 ml/min/1.73 sqM) Est GFR (CKD-EPI)NonAf 79 (>60 ml/min/1.73 sqM) Glucose 87 (74-99) mg/dL Calcium 9.1 (8.4-10.2) mg/dL Total Bilirubin 0.6 (0.2-1.3) mg/dL AST 17 (14-36) U/L ALT 14 (4-34) U/L Alkaline Phosphatase 56 (38-126) U/L Total Protein 6.4 (6.3-8.2) g/dL Albumin 4.2 (3.5-5.0) g/dL Stool Occult Blood (Negative) Blood Type Blood Type Recheck Bld Type Recheck Status Antibody Screen Spec Expiration Date 08/20/22 08/20/22 Range/Units 05:12 05:12 WBC (3.8-10.6) k/uL RBC (3.80-5.40) m/uL Hgb (11.4-16.0) gm/dL Hct (34.0-46.0) % MCV (80.0-100.0) fL MCH (25.0-35.0) pg MCHC (31.0-37.0) g/dL RDW (11.5-15.5) % Plt Count (150-450) k/uL MPV Neutrophils % % Lymphocytes % % Monocytes % % Eosinophils % % Basophils % % Neutrophils # (1.3-7.7) k/uL Lymphocytes # (1.0-4.8) k/uL Monocytes # (0-1.0) k/uL Eosinophils # (0-0.7) k/uL Basophils # (0-0.2) k/uL PT (9.0-12.0) sec INR (<1.2) APTT (22.0-30.0) sec Sodium (137-145) mmol/L Potassium (3.5-5.1) mmol/L Chloride (98-107) mmol/L Carbon Dioxide (22-30) mmol/L Anion Gap mmol/L BUN (7-17) mg/dL Creatinine (0.52-1.04) mg/dL Est GFR (CKD-EPI)AfAm (>60 ml/min/1.73 sqM) Est GFR (CKD-EPI)NonAf (>60 ml/min/1.73 sqM) Glucose (74-99) mg/dL Calcium (8.4-10.2) mg/dL Total Bilirubin (0.2-1.3) mg/dL AST (14-36) U/L ALT (4-34) U/L Alkaline Phosphatase (38-126) U/L Total Protein (6.3-8.2) g/dL Albumin (3.5-5.0) g/dL Stool Occult Blood Positive H (Negative) Blood Type O Positive Blood Type Recheck O Pos Bld Type Recheck Status No Antibody Screen NEGATIVE Spec Expiration Date 08/23/2022 - 2311 Disposition Clinical Impression: GI bleeding Disposition: ADMITTED IP TO THIS [facility] Condition: Good Instructions (If sedation given, give patient instructions): Gastrointestinal Bleeding (ED) Is patient prescribed a controlled substance at d/c from ED?: No Referrals: Ulises Rojas MD [Primary Care Provider] - 1-2 days Aditi Keith MD [STAFF PHYSICIAN] - 1-2 days
[2022-08-20 05:27] LABS: Basophils # (A) 0.1 k/uL (0-0.2); Basophils % (A) 1 %; Eosinophils # (A) 0.3 k/uL (0-0.7); Eosinophils % (A) 4 %; HCT 43.4 % (34.0-46.0); HGB 13.8 gm/dL (11.4-16.0); Lymphocytes # (A) 1.3 k/uL (1.0-4.8); Lymphocytes % (A) 19 %; MCH 30.5 pg (25.0-35.0); MCHC 31.9 g/dL (31.0-37.0); MCV 95.6 fL (80.0-100.0); Mean Platelet Volume 7.9; Monocytes # (A) 0.4 k/uL (0-1.0); Monocytes % (A) 6 %; Neutrophils # (A) 4.5 k/uL (1.3-7.7); Neutrophils % (A) 69 %; Platelet Count 220 k/uL (150-450); RBC 4.54 m/uL (3.80-5.40); RDW 12.5 % (11.5-15.5); WBC 6.6 k/uL (3.8-10.6)
[2022-08-20 05:36] LABS: ALT 14 U/L (4-34); AST 17 U/L (14-36); African American GFR (CKD) >90 (>60 ml/min/1.73 sqM); Albumin 4.2 g/dL (3.5-5.0); Alkaline Phosphatase 56 U/L (38-126); Anion Gap 9 mmol/L; Blood Urea Nitrogen 18 mg/dL (7-17); Calcium 9.1 mg/dL (8.4-10.2); Carbon Dioxide 32 mmol/L (22-30); Chloride 100 mmol/L (98-107); Glucose 87 mg/dL (74-99); Non-African American GFR(CKD) 79 (>60 ml/min/1.73 sqM); Potassium 3.8 mmol/L (3.5-5.1); Sodium 141 mmol/L (137-145); Total Bilirubin 0.6 mg/dL (0.2-1.3); Total Protein 6.4 g/dL (6.3-8.2)
[2022-08-20 05:37] LABS: Partial Thromboplastin Time 25.3 sec (22.0-30.0); Prothrombin Time 10.8 sec (9.0-12.0)
[2022-08-20] MEDS ORDERED: PANTOPRAZOLE 40 MG/10 ML VIAL IVP STA (06:14)
[2022-08-20] MEDS ORDERED: NALOXONE 0.4 MG/ML 1 ML VIAL IV PRN (06:35)
--- NOTE | 2022-08-20 08:42 | P.HPIM ---
History of Present Illness H&P Date: 08/20/22 History of Presenting Illness: Patient is a very pleasant 52-year-old female with a past medical history of anal fissures, cervical and lumbar herniated disks and chronic neck and back pain, anxiety, and depression. She presented to the hospital with a chief hematochezia. Patient reports she has been experiencing diarrhea daily for approximately 2 weeks and has noticed some pink color and blood tinged episodes at states this morning it was right red blood per rectum. Patient denies having any fevers, chills, dizziness, lightheadedness, chest pain, palpitations, nausea, vomiting, or experiencing any difficulties and or changes with her urinary function. She reports she has been experiencing right upper quadrant pain and is scheduled for a HIDA scan on due to concerns of an enlarged gallbladder. Patient underwent full evaluation in the emergency department. CBC, coags, and CMP were unremarkable. Stool occult positive. Hemoglobin stable at 13.8. Vital signs unremarkable. Patient was admitted under our services with consultation to general surgery. Review of systems: Pertinent positives and negatives as discussed in HPI, a complete review of s ystems was performed and all other systems are negative. Physical exam: Vital signs reviewed and stable. General: Nontoxic, no distress and appears stated age. Derm: Skin warm and dry, normal coloration for ethnicity. Head: Atraumatic, normocephalic and symmetric. Eyes: EOMs intact, no lid lag, and anicteric sclera Mouth: no lip lesions, mucus membranes moist Cardiovascular: regular rate and rhythm with normal S1S2, no murmur, positive posterior tibial pulses bilaterally, and cap refill < 2 seconds. Lungs: Respirations even, regular, and unlabored on room air. Lungs CTA bilaterally, no rhonchi, no rales, no wheezing, and no accessory muscle usage. Abdominal: soft, nontender to palpation, no guarding, no appreciable organomegaly Ext: ROM intact. No gross muscle atrophy, no edema, no contractures Neuro: Speech clear, face symmetrical and CN II-XII grossly intact with no noted focal neuro deficits Psych: Alert and oriented to person, place, time, and situation. Appropriate and pleasant affect. Assessment and Plan of Care: Lower GI bleed -Consult general surgery -Monitor H&H and transfuse as needed for hemoglobin less than 7. -Protonix 40 mg IVP daily. -Nothing by mouth until cleared by general surgery -Continued gentle hydration with 0.9% normal. -SCDs for DVT prophylaxis. Anxiety and depression -Continue daily medication regimen with Valium and Lexapro. The patient is admitted with an anticipated less than 2 midnight stay for evaluation of lower GI bleeding CODE STATUS: Full code DVT prophylaxis: SCDs Discussed with: Patient, patient's , and RN Anticipated discharge date: Clinical course to determine, likely tomorrow Anticipated discharge place: Home A total of 45 minutes was spent on the care of this complex patient more than 50% of the time was spent in counseling and care coordination. Past Medical History Past Medical History: GERD/Reflux Additional Past Medical History / Comment(s): cervical herniation, headaches History of Any Multi-Drug Resistant Organisms: None Reported Past Surgical History: No Surgical Hx Reported Additional Past Surgical History / Comment(s): WISDOM TEETH EXTRACTIONS Past Anesthesia/Blood Transfusion Reactions: No Reported Reaction Additional Past Anesthesia/Blood Transfusion Reaction / Comment(s): wakes up slow Past Psychological History: Anxiety, Depression Smoking Status: Never smoker Past Alcohol Use History: Rare Past Drug Use History: None Reported - Past Family History Mother Family Medical History: Cancer Additional Family Medical History / Comment(s): BREAST CANCER Medications and Allergies Home Medications Medication Instructions Recorded Confirmed Type Latanoprost [Xalatan 0.005%] 1 drop BOTH EYES HS 03/25/20 08/20/22 History Acetyl L-Carnitine 1 cap PO DAILY 08/20/22 08/20/22 History Alpha Lipoic Acid 600 mg PO DAILY 08/20/22 08/20/22 History Ascorbic Acid [Vitamin C] 1,000 mg PO DAILY 08/20/22 08/20/22 History Cholecalciferol (Vitamin D3) 75 mcg PO DAILY 08/20/22 08/20/22 History [Vitamin D3 (3000 Iu)] Cyanocobalamin (Vitamin B-12) 1,000 mcg PO DAILY 08/20/22 08/20/22 History [Vitamin B-12] Escitalopram [Lexapro] 5 mg PO DAILY 08/20/22 08/20/22 History Loratadine [Claritin] 10 mg PO DAILY 08/20/22 08/20/22 History Magnesium 250 mg PO DAILY 08/20/22 08/20/22 History [place]-3/Dha/Epa/Fish Oil [Fish Oil 1 cap PO DAILY 08/20/22 08/20/22 History EC 1,000 mg Softgel] Turmeric Root Extract [Turmeric] 500 mg PO DAILY 08/20/22 08/20/22 History Vitamin B Complex 1 cap PO DAILY 08/20/22 08/20/22 History diazePAM 1 mg PO PC-LUNCH 08/20/22 08/20/22 History diazePAM 2 mg PO QAM 08/20/22 08/20/22 History Allergies Allergy/AdvReac Type Severity Reaction Status Date / Time Penicillins Allergy Rash/Hives, Verified 08/20/22 07:08 vomiting codeine AdvReac Nausea & Verified 08/20/22 07:08 Vomiting tramadol AdvReac Nausea & Verified 08/20/22 07:08 Vomiting Physical Exam Vitals: Vital Signs Temp Pulse Pulse Resp BP BP Pulse Ox 08/20/22 08:16 99.2 F 61 16 106/69 99 08/20/22 04:37 97.7 F 86 16 120/81 98 Intake and Output 08/19/22 08/20/22 08/20/22 22:59 06:59 14:59 Other: Weight 59.421 kg Results CBC & Chem 7: 08/20/22 05:12 08/20/22 05:12 Labs: Abnormal Lab Results - Last 24 Hours (Table) 08/20/22 08/20/22 Range/Units 05:12 05:12 Carbon Dioxide 32 H (22-30) mmol/L BUN 18 H (7-17) mg/dL Stool Occult Blood Positive H (Negative)
[2022-08-20] MEDS ORDERED: PEG 3350 (236 GM/BTL) + LYTES 4,000 ML BOTTLE PO ONE (08:43)
[2022-08-20] MEDS: SODIUM CHLORIDE 0.9% 1,000 ML IV SCH ×2 (09:02→18:08)
[2022-08-20] MEDS: ESCITALOPRAM 5 MG TAB PO SCH (09:05)
[2022-08-20] MEDS: PANTOPRAZOLE 40 MG/10 ML VIAL IV SCH (10:17)
[2022-08-20] MEDS: diazePAM 2 MG TAB PO SCH ×2 (10:17→15:17)
--- NOTE | 2022-08-20 14:56 | P.GSCN ---
History of Present Illness Consult date: 08/20/22 History of present illness: CHIEF COMPLAINT: Blood in stool HISTORY OF PRESENT ILLNESS: This is a 52-year-old female who presented to the hospital with complaints of diarrhea with bright red blood that started yesterday. She reports that she had been having diarrhea for about 2 weeks. She had 2 days of a pinkish tinged on stool and then it turned into bright red blood. She reports having pain in the right lower quadrant and mid abdomen. She does have history of constipation and anal fissures that have bled in the past. On her last EGD and colonoscopy were in May 2020 revealing gastritis and Corbin's esophagus with a normal colon. Hemoglobin on admission 13.8 stool for occult blood was positive. She does take daily Aleve and Turmeric at home. Otherwise no blood pressures. PAST MEDICAL HISTORY: See list. PAST SURGICAL HISTORY: See list. MEDICATIONS: See list. ALLERGIES: See list. SOCIAL HISTORY: No illicit drug use. REVIEW OF SYSTEMS: CONSTITUTIONAL: Denies fever or chills. HEENT: Denies blurred vision, vision changes, or eye pain. Denies hemoptysis CARDIOVASCULAR: Denies chest pain or pressure. RESPIRATORY: No shortness of breath. GASTROINTESTINAL: See HPI for pertinent findings HEMATOLOGIC: Denies bleeding disorders. GENITOURINARY: Denies any blood in urine or increased urinary frequency. SKIN: Denies pruitis. Denies rash. PHYSICAL EXAM: VITAL SIGNS: Reviewed GENERAL: Well-developed in no acute distress. HEENT: No sclera icterus. Extraocular movements grossly intact. Moist buccal mucosa. Head is atraumatic, normocephalic. No nasal drainage. ABDOMEN: Soft. Nondistended. Tenderness with palpation of the right upper quadrant and umbilicus area NEUROLOGIC: Alert and oriented. Cranial nerves II through XII grossly intact. LABORATORY DATA: WBC is 6.6 hemoglobin 13.8 platelets 220 INR 1.0 Sodium 141 potassium 3.8 creatinine 0.86 LFTs normal Stool for occult blood positive IMAGING: ASSESSMENT: 1. Acute GI bleed with bright red blood per rectum PLAN: -Patient scheduled for EGD and colonoscopy tomorrow with Dr. flores -Clear liquid diet today -Start GoLYTELY prep -Nothing by mouth after midnight -Continue to monitor hemoglobin -Continue monitor for any signs or symptoms of bleeding -No NSAIDs Thank you for this consultation Physician Release Of Information Specialist note has been reviewed by physician. Signing provider agrees with the documented findings, assessment, and plan of care. Past Medical History Past Medical History: GERD/Reflux Additional Past Medical History / Comment(s): cervical herniation, headaches, lumbar herniated disc, gallstones History of Any Multi-Drug Resistant Organisms: None Reported Past Surgical History: No Surgical Hx Reported Additional Past Surgical History / Comment(s): WISDOM TEETH EXTRACTIONS Past Anesthesia/Blood Transfusion Reactions: No Reported Reaction Additional Past Anesthesia/Blood Transfusion Reaction / Comm: wakes up slow Past Psychological History: Anxiety, Depression Smoking Status: Never smoker Past Alcohol Use History: Rare Past Drug Use History: None Reported - Past Family History Mother Family Medical History: Cancer Additional Family Medical History / Comment(s): BREAST CANCER Medications and Allergies Home Medications Medication Instructions Recorded Confirmed Type Latanoprost [Xalatan 0.005%] 1 drop BOTH EYES HS 03/25/20 08/20/22 History Acetyl L-Carnitine 1 cap PO DAILY 08/20/22 08/20/22 History Alpha Lipoic Acid 600 mg PO DAILY 08/20/22 08/20/22 History Ascorbic Acid [Vitamin C] 1,000 mg PO DAILY 08/20/22 08/20/22 History Cholecalciferol (Vitamin D3) 75 mcg PO DAILY 08/20/22 08/20/22 History [Vitamin D3 (3000 Iu)] Cyanocobalamin (Vitamin B-12) 1,000 mcg PO DAILY 08/20/22 08/20/22 History [Vitamin B-12] Escitalopram [Lexapro] 5 mg PO DAILY 08/20/22 08/20/22 History Loratadine [Claritin] 10 mg PO DAILY 08/20/22 08/20/22 History Magnesium 250 mg PO DAILY 08/20/22 08/20/22 History [place]-3/Dha/Epa/Fish Oil [Fish Oil 1 cap PO DAILY 08/20/22 08/20/22 History EC 1,000 mg Softgel] Turmeric Root Extract [Turmeric] 500 mg PO DAILY 08/20/22 08/20/22 History Vitamin B Complex 1 cap PO DAILY 08/20/22 08/20/22 History diazePAM 1 mg PO PC-LUNCH 08/20/22 08/20/22 History diazePAM 2 mg PO QAM 08/20/22 08/20/22 History Allergies Allergy/AdvReac Type Severity Reaction Status Date / Time Penicillins Allergy Rash/Hives, Verified 08/20/22 07:08 vomiting codeine AdvReac Nausea & Verified 08/20/22 07:08 Vomiting tramadol AdvReac Nausea & Verified 08/20/22 07:08 Vomiting Surgical - Exam Vital Signs Temp Pulse Resp BP Pulse Ox 97.7 F 86 16 120/81 98 08/20/22 04:37 08/20/22 04:37 08/20/22 04:37 08/20/22 04:37 08/20/22 04:37 Results - Labs 08/20/22 05:12 08/20/22 05:12 Abnormal Lab Results - Last 24 Hours (Table) 08/20/22 08/20/22 Range/Units 05:12 05:12 Carbon Dioxide 32 H (22-30) mmol/L BUN 18 H (7-17) mg/dL Stool Occult Blood Positive H (Negative) Diabetes panel 08/20/22 Range/Units 05:12 Sodium 141 (137-145) mmol/L Potassium 3.8 (3.5-5.1) mmol/L Chloride 100 (98-107) mmol/L Carbon Dioxide 32 H (22-30) mmol/L BUN 18 H (7-17) mg/dL Creatinine 0.86 (0.52-1.04) mg/dL Glucose 87 (74-99) mg/dL Calcium 9.1 (8.4-10.2) mg/dL AST 17 (14-36) U/L ALT 14 (4-34) U/L Alkaline Phosphatase 56 (38-126) U/L Total Protein 6.4 (6.3-8.2) g/dL Albumin 4.2 (3.5-5.0) g/dL Calcium panel 08/20/22 Range/Units 05:12 Calcium 9.1 (8.4-10.2) mg/dL Albumin 4.2 (3.5-5.0) g/dL Pituitary panel 08/20/22 Range/Units 05:12 Sodium 141 (137-145) mmol/L Potassium 3.8 (3.5-5.1) mmol/L Chloride 100 (98-107) mmol/L Carbon Dioxide 32 H (22-30) mmol/L BUN 18 H (7-17) mg/dL Creatinine 0.86 (0.52-1.04) mg/dL Glucose 87 (74-99) mg/dL Calcium 9.1 (8.4-10.2) mg/dL Adrenal panel 08/20/22 Range/Units 05:12 Sodium 141 (137-145) mmol/L Potassium 3.8 (3.5-5.1) mmol/L Chloride 100 (98-107) mmol/L Carbon Dioxide 32 H (22-30) mmol/L BUN 18 H (7-17) mg/dL Creatinine 0.86 (0.52-1.04) mg/dL Glucose 87 (74-99) mg/dL Calcium 9.1 (8.4-10.2) mg/dL Total Bilirubin 0.6 (0.2-1.3) mg/dL AST 17 (14-36) U/L ALT 14 (4-34) U/L Alkaline Phosphatase 56 (38-126) U/L Total Protein 6.4 (6.3-8.2) g/dL Albumin 4.2 (3.5-5.0) g/dL
[2022-08-20] MEDS ORDERED: LATANOPROST 0.005% OPHTH DROPS 2.5 ML BTL BOTH EYES SCH (21:00)
[2022-08-21] MEDS: SODIUM CHLORIDE 0.9% 1,000 ML IV SCH ×3 (01:48→16:42)
[2022-08-21 09:08] LABS: HCT 42.3 % (37.2-46.3); HGB 13.6 g/dL (12.0-15.0); MCH 30.8 pg (27.0-32.0); MCHC 32.2 g/dL (32.0-37.0); MCV 95.9 fL (80.0-97.0); NRBC Per 100 WBC 0 /100 WBCS (0.0-0.0); Platelet Count 221 X 10*3/uL (140-440); RBC 4.41 X 10*6/uL (4.10-5.20); RDW 12.4 % (11.5-14.5); WBC 4.26 X 10*3/uL (4.50-10.00)
[2022-08-21] MEDS: diazePAM 2 MG TAB PO SCH ×2 (09:19→16:42)
[2022-08-21] MEDS: ESCITALOPRAM 5 MG TAB PO SCH (09:19)
[2022-08-21] MEDS: PANTOPRAZOLE 40 MG/10 ML VIAL IV SCH (09:19)
[2022-08-21 09:25] LABS: African American GFR (CKD) 115.5 (60.0-200.0); Albumin 4.3 g/dL (3.8-4.9); Albumin/Globulin Ratio 2.39 (1.60-3.17); Anion Gap 8.1 mmol/L (10.00-18.00); BUN/Creat Ratio 8.43 Ratio (12.00-20.00); Blood Urea Nitrogen 5.9 mg/dL (9.0-27.0); Calcium 9.2 mg/dL (8.7-10.3); Carbon Dioxide 28.9 mmol/L (20.0-27.5); Globulin 1.8 g/dL (1.6-3.3); Non-African American GFR(CKD) 99.6 (60.0-200.0); Potassium 4.4 mmol/L (3.5-5.5); Total Bilirubin 0.5 mg/dL (0.30-1.20); Total Protein 6.1 g/dL (6.2-8.2)
[2022-08-21] MEDS ORDERED: IV FLUID CONTINUATION 1,000 ML IV ONE (11:11)
[2022-08-21 11:12] VITALS: RESP 18
--- NOTE | 2022-08-21 11:34 | P.OP ---
Date of Procedure: 08/21/22 Preoperative Diagnosis: GI bleed Postoperative Diagnosis: Antral gastritis Hiatal hernia Mild esophagitis Procedure(s) Performed: EGD Colonoscopy Anesthesia: MAC Surgeon: Abdirahman Pack Pathology: other (Antrum, esophagus) Condition: stable Disposition: PACU Description of Procedure: The patient's placed on the endoscopy table in the lateral position. She received IV sedation. The gastroscope some placed oropharynx passed in the esophagus into the stomach. Scope was then placed through the pylorus. The first and second portion of the duodenum appeared normal. Scope was then brought back the antrum and this appeared mildly inflamed. A biopsies performed. The scope was then retroflexed and the remainder the stomach appeared normal. There was a moderate size hiatal hernia. The GE junction was at 38 cm per the distal esophagusAppeared minimal inflamed. A biopsies was performed. The proximal esophagus appeared normal. Scope withdrawn for patient. Next digital rectal exam was performed this revealed no ebonized. The possible colonoscope was then placed patient anus and passed with colon. The patient had a difficult time retaining air. The Sigmoid colon was quite tortuous. Several times made to maneuver the colonoscope through this area. This wasn't possible. This point the scope was withdrawn. And then a pediatric colonoscope was used. The pediatric loss scope wasn't advanced. The pediatric colonoscope could not be passed beyond the sigmoid colon secondary to patient's inability to retain air and tortuosity of the colon. This point scope withdrawn. There is no evidence of any GI bleed seen the colon. The visualize colon appeared normal. Scope withdrawn for patient.
[2022-08-21 14:41] VITALS: PULSE 57; TEMP 97.8
--- NOTE | 2022-08-21 16:49 | P.DS ---
Providers Date of admission: 08/20/22 06:45 Expected date of discharge: 08/21/22 Attending physician: Ben Lindsey MD Consults: 08/20/22 06:35 Consult Physician Routine Consulting Provider: Abdirahman Pack Consult Reason/Comments: GI Bleeding Do you want consulting provider notified?: Yes Primary care physician: [facility] Course: Discharge Diagnosis: Lower GI bleed, resolved. Patient monitored overnight had no further episodes of hematochezia. Hemoglobin stable at 13.6. Patient underwent EGD and colonosc opy which revealed antral gastritis, hiatal hernia, and mild esophagitis. General surgery obtain biopsies during procedure and recommending patient follow-up outpatient in their office in 2 weeks. Patient started on Protonix 40 mg daily and to follow up outpatient with PCP, general surgery, and gastroenterology Anxiety and depression . Continue daily medication regimen with Valium and Lexapro. Hospital Course: Patient is a very pleasant 52-year-old female with a past medical history of anal fissures, cervical and lumbar herniated disks and chronic neck and back pain, anxiety, and depression. She presented to the hospital with a chief hematochezia. Patient reports she has been experiencing diarrhea daily for approximately 2 weeks and has noticed some pink color and blood tinged episodes at states this morning it was right red blood per rectum. Patient denies having any fevers, chills, dizziness, lightheadedness, chest pain, palpitations, nausea, vomiting, or experiencing any difficulties and or changes with her urinary function. She reports she has been experiencing right upper quadrant pain and is scheduled for a HIDA scan on due to concerns of an enlarged gallbladder. Patient underwent full evaluation in the emergency department. CBC, coags, and CMP were unremarkable. Stool occult positive. Hemoglobin stable at 13.8. Vital signs unremarkable. Patient was admitted under our services with consultation to general surgery. Patient monitored overnight had no further episodes of hematochezia. Hemoglobin stable at 13.6. Patient underwent EGD and colonoscopy which revealed antral gastritis, hiatal hernia, and mild esophagitis. General surgery obtain biopsies during procedure and recommending patient follow-up outpatient in their office in 2 weeks. Patient started on Protonix 40 mg daily and to follow up outpatient with PCP, general surgery, and gastroenterology Physical exam: Vital signs reviewed and stable. General: Nontoxic, no distress and appears stated age. Derm: Skin warm and dry, normal coloration for ethnicity. Head: Atraumatic, normocephalic and symmetric. Eyes: EOMs intact, no lid lag, and anicteric sclera Mouth: no lip lesions, mucus membranes moist Cardiovascular: regular rate and rhythm with normal S1S2, no murmur, positive posterior tibial pulses bilaterally, and cap refill < 2 seconds. Lungs: Respirations even, regular, and unlabored on room air. Lungs CTA bilaterally, no rhonchi, no rales, no wheezing, and no accessory muscle usage. Abdominal: soft, nontender to palpation, no guarding, no appreciable organomegaly Ext: ROM intact. No gross muscle atrophy, no edema, no contractures Neuro: Speech clear, face symmetrical and CN II-XII grossly intact with no noted focal neuro deficits Psych: Alert and oriented to person, place, time, and situation. Appropriate and pleasant affect. A total of 33 minutes of time were spent preparing this complex discharge summary. Pt was discharged on 08/21/22 at 4:47 PM Patient Condition at Discharge: Stable Plan - Discharge Summary Discharge Rx Participant: No New Discharge Prescriptions: Continue Latanoprost [Xalatan 0.005%] 1 drop BOTH EYES HS [place]-3/Dha/Epa/Fish Oil [Fish Oil EC 1,000 mg Softgel] 1 cap PO DAILY Magnesium 250 mg PO DAILY Ascorbic Acid [Vitamin C] 1,000 mg PO DAILY Escitalopram [Lexapro] 5 mg PO DAILY diazePAM 2 mg PO QAM Acetyl L-Carnitine 1 cap PO DAILY Alpha Lipoic Acid 600 mg PO DAILY Loratadine [Claritin] 10 mg PO DAILY Cholecalciferol (Vitamin D3) [Vitamin D3 (3000 Iu)] 75 mcg PO DAILY Vitamin B Complex 1 cap PO DAILY Turmeric Root Extract [Turmeric] 500 mg PO DAILY Cyanocobalamin (Vitamin B-12) [Vitamin B-12] 1,000 mcg PO DAILY diazePAM 1 mg PO PC-LUNCH Discharge Medication List Latanoprost [Xalatan 0.005%] 1 drop BOTH EYES HS 03/25/20 [History] Acetyl L-Carnitine 1 cap PO DAILY 08/20/22 [History] Alpha Lipoic Acid 600 mg PO DAILY 08/20/22 [History] Ascorbic Acid [Vitamin C] 1,000 mg PO DAILY 08/20/22 [History] Cholecalciferol (Vitamin D3) [Vitamin D3 (3000 Iu)] 75 mcg PO DAILY 08/20/22 [History] Cyanocobalamin (Vitamin B-12) [Vitamin B-12] 1,000 mcg PO DAILY 08/20/22 [History] Escitalopram [Lexapro] 5 mg PO DAILY 08/20/22 [History] Loratadine [Claritin] 10 mg PO DAILY 08/20/22 [History] Magnesium 250 mg PO DAILY 08/20/22 [History] [place]-3/Dha/Epa/Fish Oil [Fish Oil EC 1,000 mg Softgel] 1 cap PO DAILY 08/20/22 [History] Turmeric Root Extract [Turmeric] 500 mg PO DAILY 08/20/22 [History] Vitamin B Complex 1 cap PO DAILY 08/20/22 [History] diazePAM 1 mg PO PC-LUNCH 08/20/22 [History] diazePAM 2 mg PO QAM 08/20/22 [History] Follow up Appointment(s)/Referral(s): Ulises Rojas MD [Primary Care Provider] - 1-2 days Aditi Keith MD [STAFF PHYSICIAN] - 1-2 days (follow up for HIDA scan) Abdirahman Pack MD [STAFF PHYSICIAN] - 2 Weeks (Follow up in office for biopsy results) Patient Instructions/Handouts: Gastrointestinal Bleeding (ED) Activity/Diet/Wound Care/Special Instructions: Activity: As tolerated. Take breaks as needed. Diet: Heart healthy and carb consistent diet. Avoid salts, or foods with hidden salts such as canned or boxed foods and frozen dinners. Extra salt makes your heart work harder and traps the fluid in your body for longer. Special Instructions: Take all of your medications as directed and remember to keep all of your doctor's appointments and follow-up as needed. Thank you for allowing us to participate in your care, it was truly a pleasure having you for our patient!!! Discharge Disposition: HOME SELF-CARE
[2022-08-21 17:13] VITALS: BP 112/67
== END 2022-08-21 18:19 | disposition home or self-care (01) ==
LOC: EC 04:34 → 6NMEDSUR 06:45
PROVIDERS: ADMIT Internal Medicine; ATTEND Internal Medicine
DX: K29.60 Other gastritis without bleeding (principal); K44.9 Diaphragmatic hernia without obstruction or gangrene; K21.00 Gastro-esophageal reflux disease with esophagitis, without bleeding; F32.A Depression, unspecified; F41.9 Anxiety disorder, unspecified; M54.2 Cervicalgia; M54.9 Dorsalgia, unspecified; G89.29 Other chronic pain; Z79.899 Other long term (current) drug therapy; Z88.0 Allergy status to penicillin; Z80.3 Family history of malignant neoplasm of breast; Z88.6 Allergy status to analgesic agent
CPT/HCPCS: 96376 ×2; 96374; 99285; 36415; 86900; 86901; 88305; 80053 ×2; 85025; 85027; 85610; 85730; 86850; 82272; 43239; 45378; G0378 ×2; C9113 ×2

== ENCOUNTER 2022-10-10 11:17 | Day surgery (SDC) | payer BC ==
[2022-10-08 14:30] VITALS: BMI 22.6
--- NOTE | 2022-10-10 05:51 | P.GSHP ---
History of Present Illness H&P Date: 10/10/22 CHIEF COMPLAINT: Cholecystitis HISTORY OF PRESENT ILLNESS: The patient is a 52-year-old female who presents with history of epigastric including right upper quadrant abdominal pain. She underwent diagnostic studies for her gallbladder. Separately her clinical picture was consistent with cholecystitis. Now she presents for surgical intervention. PAST MEDICAL HISTORY: Please see list PAST SURGICAL HISTORY: Please see list MEDICATIONS: Please see list ALLERGIES: Please see list SOCIAL HISTORY: Please see list FAMILY HISTORY: Please see list REVIEW OF ORGAN SYSTEMS: CONSTITUTIONAL: No reports of fevers or chills. HEENT: Denies any troubles with the vision or hearing. ENDOCRINE: No reports of hypothyroidism. No diabetes. RESPIRATORY: No recent pneumonias. CARDIOVASCULAR: Denies chest pain or palpitations GI: No blood in stools or constipation. MUSCULOSKELETAL: Has occasional joint pain including back pain. NEURO: No seizure disorders or headaches. No recent stroke. PSYCH: No depression or suicidal ideation. GENITOURINARY: No active blood in urine. No urinary hesitancy. HEMATOLOGIC: No personal or family history of DVTs or pulmonary emboli. SKIN: No skin cancer. PHYSICAL EXAM: VITAL SIGNS: Afebrile vital signs stable GENERAL: Well-developed pleasant in no acute distress. HEENT: No scleral icterus. Extraocular movements grossly intact. Moist buccal mucosa. NECK: Supple without lymphadenopathy. CHEST: Unlabored respirations. Equal bilateral excursions. CARDIOVASCULAR: Regular rate regular rhythm rhythm. Distal 2+ pulses. ABDOMEN: Soft, nondistended. Tender along the epigastrium and right upper quadrant. MUSCULOSKELETAL: No clubbing, cyanosis, or edema. NEURO: Cranial nerves II to XII within normal limits. No focal or lateralizing signs. PSYCH: Alert and oriented to person, place and time. SKIN: Well-perfused good skin turgor. ASSESSMENT: 1. Epigastric and right upper quadrant abdominal pain 2. Chronic cholecystitis 3. Symptomatic gallstones. PLAN: 1. Will need a robotic cholecystectomy possible open. Benefits and risks were described. 2. Heparin for DVT prophylaxis 5000 units. 3. Antibiotic prophylaxis. 4. CBC and CMP on day of procedure 5. Non-narcotic pre and post op pain management reviewed. 6. Indocyanine green for biliary imaging. Past Medical History Past Medical History: GERD/Reflux Additional Past Medical History / Comment(s): cervical herniation, headaches, History of Any Multi-Drug Resistant Organisms: None Reported Past Surgical History: No Surgical Hx Reported Additional Past Surgical History / Comment(s): WISDOM TEETH EXTRACTIONS, Colonoscopy & EGD. Past Anesthesia/Blood Transfusion Reactions: No Reported Reaction Additional Past Anesthesia/Blood Transfusion Reaction / Comment(s): wakes up slow Smoking Status: Never smoker - Past Family History Mother Family Medical History: Cancer Additional Family Medical History / Comment(s): BREAST CANCER Medications and Allergies Home Medications Medication Instructions Recorded Confirmed Type Latanoprost [Xalatan 0.005%] 1 drop BOTH EYES HS 03/25/20 10/08/22 History Acetyl L-Carnitine 1 cap PO DAILY 08/20/22 10/08/22 History Alpha Lipoic Acid 600 mg PO DAILY 08/20/22 10/08/22 History Ascorbic Acid [Vitamin C] 1,000 mg PO DAILY 08/20/22 10/08/22 History Cholecalciferol (Vitamin D3) 75 mcg PO DAILY 08/20/22 10/08/22 History [Vitamin D3 (3000 Iu)] Cyanocobalamin (Vitamin B-12) 1,000 mcg PO DAILY 08/20/22 10/08/22 History [Vitamin B-12] Escitalopram [Lexapro] 5 mg PO DAILY 08/20/22 10/08/22 History Loratadine [Claritin] 10 mg PO DAILY 08/20/22 10/08/22 History Magnesium 250 mg PO DAILY 08/20/22 10/08/22 History [place]-3/Dha/Epa/Fish Oil [Fish Oil 1 cap PO DAILY 08/20/22 10/08/22 History EC 1,000 mg Softgel] Turmeric Root Extract [Turmeric] 500 mg PO DAILY 08/20/22 10/08/22 History Vitamin B Complex 1 cap PO DAILY 08/20/22 10/08/22 History diazePAM 0.5 mg PO DAILY 08/20/22 10/08/22 History Pantoprazole [Protonix] 40 mg PO DAILY 30 Days #30 tab 08/21/22 10/08/22 Rx Allergies Allergy/AdvReac Type Severity Reaction Status Date / Time Penicillins Allergy Rash/Hives, Verified 10/08/22 14:00 vomiting codeine AdvReac Nausea & Verified 10/08/22 14:00 Vomiting tramadol AdvReac Nausea & Verified 10/08/22 14:00 Vomiting
[~2022-10-10 11:17] MED LIST changes: +ACETAMINOPHEN TAB 500 MG TAB PO PRN; +DEXAMETHASONE SOD PHOSPHATE 4 MG/ML 1 ML VIAL IV ONE; +HEPARIN SODIUM,PORCINE/PF 5,000 UNIT/0.5 ML SYRINGE SQ PRN; +INDOCYANINE GREEN 25 MG VIAL IV STA; +MELOXICAM 7.5 MG TAB PO PRN; +MIDAZOLAM 2 MG/2 ML VIAL IV PRN; +ONDANSETRON 4 MG/2 ML VIAL IVP ONE; +SCOPOLAMINE 1 MG/72 HR PATCH TRANSDERM ONE; +SCOPOLAMINE 1 MG/72 HR PATCH TRANSDERM PRN; +fentaNYL (PF) 50 MCG/ML 2 ML AMP IV PRN
[2022-10-10 12:07] VITALS: RESP 16
[2022-10-10] MEDS ORDERED: LIDOCAINE 1% (10MG/ML) FOR IV START INTRADERMA ONE (12:20)
[2022-10-10 12:36] LABS: HCT 42.4 % (34.0-46.0); HGB 14.1 gm/dL (11.4-16.0); MCHC 33.3 g/dL (31.0-37.0); MCV 93.1 fL (80.0-100.0); Mean Platelet Volume 8.6; Platelet Count 238 k/uL (150-450); RBC 4.56 m/uL (3.80-5.40); RDW 12.7 % (11.5-15.5); WBC 5.8 k/uL (3.8-10.6)
[2022-10-10 13:23] LABS: ALT 42 U/L (4-34); African American GFR (CKD) >90 (>60 ml/min/1.73 sqM); Anion Gap 7 mmol/L; Blood Urea Nitrogen 25 mg/dL (7-17); Carbon Dioxide 30 mmol/L (22-30); Chloride 103 mmol/L (98-107); Glucose 95 mg/dL (74-99); Non-African American GFR(CKD) >90 (>60 ml/min/1.73 sqM); Sodium 140 mmol/L (137-145); Total Bilirubin 0.8 mg/dL (0.2-1.3)
[2022-10-10 13:24] LABS: AST 33 U/L (14-36); Albumin 4.6 g/dL (3.5-5.0); Potassium 5.1 mmol/L (3.5-5.1); Total Protein 7.1 g/dL (6.3-8.2)
[2022-10-10 13:25] LABS: Alkaline Phosphatase 72 U/L (38-126)
[2022-10-10] MEDS ORDERED: PROPOFOL 10 MG/ML 20 ML VIAL IV ONE (14:02)
[2022-10-10] MEDS ORDERED: MIDAZOLAM 2 MG/2 ML VIAL ONE (14:02)
[2022-10-10] MEDS ORDERED: LIDOCAINE 4% LTA KIT (4 ML) TOPICAL ONE (14:02)
[2022-10-10] MEDS ORDERED: ROCURONIUM 10 MG/ML (5 ML VIAL) IV ONE (14:02)
[2022-10-10] MEDS ORDERED: GLYCOPYRROLATE 0.2 MG/ML 2 ML VIAL ONE (14:02)
[2022-10-10] MEDS ORDERED: KETOROLAC 15 MG/ML 1 ML VIAL ONE (14:02)
[2022-10-10] MEDS ORDERED: SUCCINYLCHOLINE CHLORIDE 200 MG/10 ML VIAL IV ONE (14:02)
[2022-10-10] MEDS ORDERED: NEOSTIGMINE 1 MG/ML 10 ML VIAL ONE (14:02)
[2022-10-10] MEDS ORDERED: fentaNYL (PF) 50 MCG/ML 2 ML AMP ONE (14:02)
[2022-10-10] MEDS ORDERED: LIDOCAINE 2% INJ 20 MG/ML (2 ML VIAL) ONE (14:02)
[2022-10-10] MEDS ORDERED: LIDOCAINE 1%-EPI 1:100,000 20 ML VIAL SQ ONE ×2 (14:04→14:30)
[2022-10-10] MEDS ORDERED: LACTATED RINGERS 1,000 ML IV ONE (14:53)
[2022-10-10 15:14] VITALS: TEMP 97.1
--- NOTE | 2022-10-10 15:20 | P.OP ---
Date of Procedure: 10/10/22 Preoperative Diagnosis: SURGEON: STEPHANIE PRECIADO MD PREOPERATIVE DIAGNOSES: 1. Symptomatic gallstones 2. Right upper quadrant abdominal pain 3. Depressive disorder 4. Gastroesophageal reflux disease POSTOPERATIVE DIAGNOSES: 1. Acute on chronic cholecystitis 2. Right upper quadrant abdominal pain 3. Symptomatic gallstone 4. Peritoneal adhesions, right upper quadrant OPERATION: Robotic-assisted da Clement Xi laparoscopic cholecystectomy, multiport with FIREFLY ESTIMATED BLOOD LOSS: 5 mL. SPECIMENS REMOVED: Gallbladder. COMPLICATIONS: None. OPERATIVE FINDINGS: 1. Acute cholecystitis with thickened gallbladder wall INDICATIONS: The patient is a 52-year-old female who presents with symptomatic gallstones. Robotic assisted laparoscopic approach was described. Benefits and risks of the procedure including but not limited to bleeding, infection, injury to the biliary tree was described. Informed consent was obtained. DESCRIPTION OF PROCEDURE: Patient was brought to the operating room, placed in supine position. After general induction, the abdomen had been prepped and draped in standard sterile fashion. The robotic da Clement XI system was primed. After a timeout protocol was performed, the patient had been prepped and draped in standard sterile fashion. The patient was injected with indocyanine green. A 5 mm 0 degrees laparoscopic trocar entry was performed along the left upper quadrant. The abdomen insufflated to 15 mmHg pressure which was tolerated well. Diagnostic laparoscopy demonstrated no injury to bowel viscera or mesentery. The liver surface was unremarkable. Next, two 8 mm robotic ports were placed along the right upper abdomen. The camera 8-mm port was maintained along the epigastrium. Another 8 mm port was placed along the left upper abdominal wall after exchanging the 5 mm port. Please note that the ports were placed at least 10 to 15 cm away from the target anatomy of the gallbladder. The robot was docked along the left lateral abdomen. The patient was repositioned in reverse Trendelenburg position. Using a grasper for arm 3, a grasper for arm 4, including hook cautery for arm 1, the robotic system was docked and primed as described. Instruments were interchanged by the logistics assistant including hook cautery, Bovie cautery and clip appliers. I had sat at the console. The gallbladder wall was markedly thickened consistent acute cholecystitis. Next attention was brought to the infundibulum and cystic structures. The infundibulum and cystic duct were dissected free from surrounding tissues. The cystic duct was isolated. FIREFLY was used to identify the cystic artery and cystic structures. A critical view of safety was obtained. Large PLASTIC clips were used throughout the entire case. Using a clip analytical lab analyst, 2 clips were placed at the junction of the infundibulum and cystic duct. The cystic duct was divided between clips. Next, the cystic artery was similarly clipped and cauterized. Electro-Bovie cautery was used to remove the gallbladder from the hepatic fossa. Hemostasis was checked and found to be adequate. The robot was undocked. I re-scrubbed into the case. Using a 10 mm Endo Catch bag via the left upper quadrant incision, the specimen was removed from the abdominal cavity. The fascia was widened for removal of the gallbladder. The fascia was closed using Abel Barker and 0 Vicryl. All pneumoperitoneum instruments were evacuated from the abdominal cavity. The incisions were reapproximated using 4-0 Monocryl in an interrupted subcuticular fashion. Fascial defects were less than 8 mm in size. Please note along the trocar sites, local anesthetic was placed as a field block prior to insertion of all instruments. Liquid glue was applied to the skin. At the end of the procedure needle, sponge, and instrument count had been verified correct by the surgical instrument technician. The patient was transferred to postanesthesia care unit in stable condition. Intraoperative films were shared with the patient's family. Plan - Discharge Summary Discharge Rx Participant: Yes New Discharge Prescriptions: Continue Latanoprost [Xalatan 0.005%] 1 drop BOTH EYES HS [place]-3/Dha/Epa/Fish Oil [Fish Oil EC 1,000 mg Softgel] 1 cap PO DAILY Magnesium 250 mg PO DAILY Ascorbic Acid [Vitamin C] 1,000 mg PO DAILY Escitalopram [Lexapro] 5 mg PO DAILY Acetyl L-Carnitine 1 cap PO DAILY Alpha Lipoic Acid 600 mg PO DAILY Loratadine [Claritin] 10 mg PO DAILY Cholecalciferol (Vitamin D3) [Vitamin D3 (3000 Iu)] 75 mcg PO DAILY Vitamin B Complex 1 cap PO DAILY Turmeric Root Extract [Turmeric] 500 mg PO DAILY Cyanocobalamin (Vitamin B-12) [Vitamin B-12] 1,000 mcg PO DAILY diazePAM 0.5 mg PO DAILY Pantoprazole [Protonix] 40 mg PO DAILY 30 Days #30 tab Discharge Medication List Latanoprost [Xalatan 0.005%] 1 drop BOTH EYES HS 03/25/20 [History] Acetyl L-Carnitine 1 cap PO DAILY 08/20/22 [History] Alpha Lipoic Acid 600 mg PO DAILY 08/20/22 [History] Ascorbic Acid [Vitamin C] 1,000 mg PO DAILY 08/20/22 [History] Cholecalciferol (Vitamin D3) [Vitamin D3 (3000 Iu)] 75 mcg PO DAILY 08/20/22 [History] Cyanocobalamin (Vitamin B-12) [Vitamin B-12] 1,000 mcg PO DAILY 08/20/22 [History] Escitalopram [Lexapro] 5 mg PO DAILY 08/20/22 [History] Loratadine [Claritin] 10 mg PO DAILY 08/20/22 [History] Magnesium 250 mg PO DAILY 08/20/22 [History] [place]-3/Dha/Epa/Fish Oil [Fish Oil EC 1,000 mg Softgel] 1 cap PO DAILY 08/20/22 [History] Turmeric Root Extract [Turmeric] 500 mg PO DAILY 08/20/22 [History] Vitamin B Complex 1 cap PO DAILY 08/20/22 [History] diazePAM 0.5 mg PO DAILY 08/20/22 [History] Pantoprazole [Protonix] 40 mg PO DAILY 30 Days #30 tab 08/21/22 [Rx] Follow up Appointment(s)/Referral(s): Stephanie Preciado MD [STAFF PHYSICIAN] - 10/14/22 (TELEHEALTH) Patient Instructions/Handouts: Low Fat Diet (DC), *[facility] - Laparoscopic Cholecystectomy Discharge Instructions, *[facility] - Managing Your Pain After Surgery Without Opioids Activity/Diet/Wound Care/Special Instructions: Recommend low-fat diet for the next 2 days. No lifting over 10 pounds in 2 weeks until Oct 24. May shower. No bath tub soaks for two weeks until Oct 24 Diet as tolerated. Use Tylenol, simethicone and ibuprofen or Aleve scheduled for the next 24-48 meliza rs for best pain relief. Use ice along incisions for today to prevent swelling. Discharge Disposition: HOME SELF-CARE
[2022-10-10 16:33] VITALS: BP 117/73; PULSE 48
[2022-10-10] MEDS ORDERED: ACETAMINOPHEN TAB 325 MG TAB ONE (17:04)
[2022-10-10] MEDS ORDERED: ACETAMINOPHEN TAB 325 MG TAB PO ONE (17:06)
== END 2022-10-10 17:40 | disposition home or self-care (01) ==
LOC: OR 11:17
PROVIDERS: ATTEND Surgery Plastic and Reconstructive Surgery
DX: K80.12 Calculus of gallbladder with acute and chronic cholecystitis without obstruction (principal); K66.0 Peritoneal adhesions (postprocedural) (postinfection); K21.9 Gastro-esophageal reflux disease without esophagitis; M50.20 Other cervical disc displacement, unspecified cervical region; Z80.3 Family history of malignant neoplasm of breast; Z79.899 Other long term (current) drug therapy; Z88.0 Allergy status to penicillin; Z88.5 Allergy status to narcotic agent; Z88.8 Allergy status to other drugs, medicaments and biological substances
CPT/HCPCS: 80053; 85027; 47562; J2250; J0330; J1100; J2710; J0690; J2405; J3010; J1885; J2704; J1644; J2001; 88304

== ENCOUNTER → 2022-10-18 | Outpatient (CLI) | payer BC ==
[2022-10-18 17:15] LABS: African American GFR (CKD) 95.4 (60.0-200.0); Albumin 4.5 g/dL (3.8-4.9); Albumin/Globulin Ratio 1.69 (1.60-3.17); Anion Gap 9.3 mmol/L (10.00-18.00); BUN/Creat Ratio 21.71 Ratio (12.00-20.00); Blood Urea Nitrogen 17.8 mg/dL (9.0-27.0); Calcium 9.9 mg/dL (8.7-10.3); Carbon Dioxide 32.3 mmol/L (20.0-27.5); Globulin 2.6 g/dL (1.6-3.3); Non-African American GFR(CKD) 82.3 (60.0-200.0); Potassium 4.8 mmol/L (3.5-5.5); Total Bilirubin 0.2 mg/dL (0.30-1.20); Total Protein 7.1 g/dL (6.2-8.2)
== END | disposition home or self-care (01) ==
LOC: LABWHC1 09:23
PROVIDERS: ATTEND Surgery Plastic and Reconstructive Surgery
DX: K80.10 Calculus of gallbladder with chronic cholecystitis without obstruction (principal)
CPT/HCPCS: 36415; 80053

== ENCOUNTER → 2022-10-31 | Outpatient (CLI) | payer BC ==
--- NOTE | 2022-10-31 12:27 | US ---
EXAMINATION TYPE: US abdomen limited DATE OF EXAM: 10/31/2022 COMPARISON: NONE CLINICAL HISTORY: R10.11 RUQ PAIN. RUQ pain, cholecystectomy 3 weeks ago TECHNIQUE: Multiple sonographic images of the right upper quadrant are obtained. FINDINGS: EXAM MEASUREMENTS: Liver Length: 15.8 cm Gallbladder Wall: Surgically absent CBD: 0.4 cm Right Kidney: 10.9 x 4.0 x 4.6 cm Pancreas: visualized portions appear wnl, head obscured by overlying bowel content Liver: appears wnl Gallbladder: Surgically absent. No free fluid in the right upper quadrant. Evidence for sonographic Mclaughlin's sign: no CBD: wnl Right Kidney: no evidence of hydronephrosis IMPRESSION: 1. Right upper quadrant ultrasound appears unremarkable.
== END | disposition home or self-care (01) ==
LOC: RADUSWWP 06:57
PROVIDERS: ATTEND Surgery Plastic and Reconstructive Surgery
DX: R10.11 Right upper quadrant pain (principal); Z90.49 Acquired absence of other specified parts of digestive tract
CPT/HCPCS: 76705

== ENCOUNTER → 2024-10-24 | Outpatient (CLI) | payer BC ==
[2024-10-24 17:03] VITALS: BP 128/81; PULSE 82; RESP 18; TEMP 98.1
--- NOTE | 2024-10-24 17:35 | P.SLEEP ---
History of Present Illness DATE: 10/24/2024 CONSULTATION/NEW PATIENT EVALUATION HISTORY OF PRESENT ILLNESS/SLEEP-WAKE EVALUATION: 54-year-old lady had been evaluated in the sleep center for possible obstructive sleep apnea hypopnea syndrome. SLEEP SCHEDULE: Usually sleep schedule from 10:30 PM to 6:30 AM on weekdays and from 1112 midnight until 7 AM on weekend. FALLING ASLEEP: Sometimes patient may have difficulties with falling asleep, used to read in bedroom. DURING SLEEP: Patient prefers to sleep on stomach position. Patient has history of snoring and awakenings from sleep with choking, grinding teeth, panic attacks, heartburn. No history of hypnogogical hallucinations, sleep paralysis, or cataplexy. DURING THE DAY/WAKE STATE: In the morning patient wake up tired, has episodes of anxiety. Mayo sleepiness scale is 7. Patient may take 1 nap at 3 to 4 PM. PAST MEDICAL HISTORY: Grinding teeth, anxiety, acid reflux, panic attacks, allergies. PAST SURGICAL HISTORY: Cholecystectomy. MEDICATIONS: Lexapro 5 mg once a day, Protonix 40 mg once a day, Singulair once a day, Zyrtec, vitamins B, C, D. SOCIAL HISTORY: Please see below. FAMILY HISTORY: Please see below. REVIEW OF SYSTEMS: Snoring, multiple awakenings from sleep. No fevers. No double vision. No recent chest pain. No shortness of breath. No abdominal pain. No bleeding episodes. No blood in urine. No seizure episodes. PHYSICAL EXAMINATION: GENERAL: A pleasant patient without any distress. VITAL SIGNS: Please see below, weight 183 pounds, BMI 29.8. HEENT: PERRLA, EOMI. Evaluation of oropharynx showed tongue protrudes midline, low position of soft palate Mallampati 4. NECK: Supple. No JVD. Thyroid is not palpable. 13 inches in circumference. LUNGS: Clear to percussion and to auscultation. Good air exchange. No wheezing or rhonchi. HEART: S1, S2 regular. No murmurs, gallops or rubs. ABDOMEN: Soft and nontender. Bowel sounds are present. No organomegaly appreciated. EXTREMITIES: No clubbing or cyanosis. EMERGENCY MEDICINE: Awake, alert, and oriented x3. Cranial nerves 2 to 7 intact. There is no fasciculation or atrophy noted. No focal deficits observed. ASSESSMENT: 1. Snoring, multiple awakenings from sleep, low position of soft palate Mallampati 4, retrognathia 2 mm. Obstructive sleep apnea hypopnea syndrome. 2. Acid reflux. 3. Anxiety. 4. Panic attacks. 5 allergy. 6 . Status post cholecystectomy. PLAN: 1. Home sleep apnea test for evaluation of patient's breathing during sleep. 2. Following plan after reading sleep study. 3. Preferable position during sleep on the side. 4. No driving if patient feels any sleepiness. Patient is aware of civil and criminal liability for unsafe driving. 5. Sleep hygiene with regular sleep time for at least 7.5-8 hours. 6. Watching weight. Thank you very much for referring this patient for consultation. Sincerely, Girma Ruiz MD, PhD, FAASM. Diplomat of [employer], Sleep Medicine Board by [employer] [facility] [place] Past Medical History Past Medical History: GERD/Reflux Additional Past Medical History / Comment(s): cervical herniation, headaches, throat drainage/sinus issues - possible allergies, anxiety and pretty severe panic attacks, gallstones, clenching and grinding at night (pt states this is a huge issues - has broken bite splints) History of Any Multi-Drug Resistant Organisms: None Reported Past Surgical History: No Surgical Hx Reported, Cholecystectomy Additional Past Surgical History / Comment(s): WISDOM TEETH EXTRACTIONS, Colonoscopy & EGD. Past Anesthesia/Blood Transfusion Reactions: No Reported Reaction Additional Past Anesthesia/Blood Transfusion Reaction / Comment(s): wakes up slow Past Psychological History: Anxiety, Depression, Panic Disorder Smoking Status: Never smoker Past Alcohol Use History: Rare Past Drug Use History: None Reported - Past Family History Mother Family Medical History: Cancer, Hypertension Additional Family Medical History / Comment(s): BREAST CANCER, diverticulitis, allergies , arthritis Father Family Medical History: Hyperlipidemia, Hypertension, Myocardial Infarction (ID) Additional Family Medical History / Comment(s): snoring, 5 bypasses, Brother(s) Family Medical History: Sleep Apnea/CPAP/BIPAP Additional Family Medical History / Comment(s): snoring, non - epileptic seizures (unable to determine cause) the last 2 years Medications and Allergies Home Medications Medication Instructions Recorded Confirmed Type Latanoprost [Xalatan 0.005%] 1 drop BOTH EYES HS 03/25/20 10/08/22 History Acetyl L-Carnitine 1 cap PO DAILY 08/20/22 10/08/22 History Alpha Lipoic Acid 600 mg PO DAILY 08/20/22 10/08/22 History Ascorbic Acid [Vitamin C] 1,000 mg PO DAILY 08/20/22 10/08/22 History Cholecalciferol (Vitamin D3) 75 mcg PO DAILY 08/20/22 10/08/22 History [Vitamin D3 (3000 Iu)] Cyanocobalamin (Vitamin B-12) 1,000 mcg PO DAILY 08/20/22 10/08/22 History [Vitamin B-12] Escitalopram [Lexapro] 5 mg PO DAILY 08/20/22 10/08/22 History Loratadine [Claritin] 10 mg PO DAILY 08/20/22 10/08/22 History Magnesium 250 mg PO DAILY 08/20/22 10/08/22 History [place]-3/Dha/Epa/Fish Oil [Fish Oil 1 cap PO DAILY 08/20/22 10/08/22 History EC 1,000 mg Softgel] Turmeric Root Extract [Turmeric] 500 mg PO DAILY 08/20/22 10/08/22 History Vitamin B Complex 1 cap PO DAILY 08/20/22 10/08/22 History diazePAM 0.5 mg PO DAILY 08/20/22 10/08/22 History Pantoprazole [Protonix] 40 mg PO DAILY 30 Days #30 tab 08/21/22 10/08/22 Rx Allergies Allergy/AdvReac Type Severity Reaction Status Date / Time Penicillins Allergy Rash/Hives, Verified 10/08/22 14:00 vomiting codeine AdvReac Nausea & Verified 10/08/22 14:00 Vomiting tramadol AdvReac Nausea & Verified 10/08/22 14:00 Vomiting Physical Exam Vitals: Vital Signs Temp Pulse Resp BP Pulse Ox 10/24/24 17:02 98.1 F 82 18 128/81 97 Intake and Output 10/24/24 10/24/24 10/24/24 06:59 14:59 22:59 Other: Weight 83.007 kg Sleep Note - Sleep Data ESS Total: 7 - Sleep Note Sleep Note: Temperature: 98.1 F Pulse Rate: 82 Respiratory Rate: 18 Blood Pressure: 128/81 SpO2: 97 Height: 5 ft 5.5 in Weight: 83.007 kg BMI: Neck Circumference: 13
== END ==
LOC: 3 N SLEEP 16:19
PROVIDERS: ATTEND Internal Medicine
DX: G47.33 Obstructive sleep apnea (adult) (pediatric) (principal); M26.19 Other specified anomalies of jaw-cranial base relationship; K21.9 Gastro-esophageal reflux disease without esophagitis; F41.9 Anxiety disorder, unspecified; F41.0 Panic disorder [episodic paroxysmal anxiety]; Z90.49 Acquired absence of other specified parts of digestive tract; Z88.5 Allergy status to narcotic agent; Z88.0 Allergy status to penicillin
CPT/HCPCS: 99211

== ENCOUNTER → 2024-11-04 | Outpatient (CLI) | payer BC ==
--- NOTE | 2024-11-09 11:52 | P.PCN ---
Description of Procedure: CLINICAL: A home sleep apnea test has been done for confirmation of possible obstructive sleep apnea-hypopnea syndrome. DESCRIPTION OF PROCEDURE: RESULTS: Recording time was 8 hours 18 minutes. Evaluation time was 8 hours 03 minutes. Evaluation time is sufficient for making conclusion about results of the test. Raw data of sleep recording has been reviewed and is adequate. Respiratory channel showed 20 apneas and 18 hypopneas. Apnea-hypopnea index was 4.7 per hour, in supine position 5.8. Pulse rate in the range between minimum 47, maximum 106, average 64 by computer calculation. Lowest desaturation was 88%. IMPRESSION: 1. Very minimal abnormalities of respiration for the whole night, in normal range by today's criteria's. Mild abnormalities of respiration on the back position. Normal oxygenation during sleep. Please see other impressions from consultation. PLAN: 1. I will see patient for follow-up visit to discuss results of the test and recommendations. 2. Preferable position for the sleep on the side. 3. Watching and losing weight. 4. Sleep hygiene with regular time in bed for at least 8 hours. 5. No driving if feeling any sleepiness. Thank you very much for allowing me to participate in the management of your patient. Sincerely, Girma Ruiz MD, PhD, FAASM Diplomat of [employer] Sleep Medicine Board of [employer] Customer Service And Sales Consultant of [facility] [place] cc: Moreno Rojas MD
== END ==
LOC: 3 N SLEEP 10:54
PROVIDERS: ATTEND Internal Medicine
DX: G47.30 Sleep apnea, unspecified (principal); Z88.0 Allergy status to penicillin; Z88.5 Allergy status to narcotic agent

== ENCOUNTER → 2024-12-29 | Outpatient (CLI) | payer BC ==
[2024-12-29 11:44] VITALS: BP 122/83; PULSE 78; RESP 16; TEMP 97.7
--- NOTE | 2024-12-29 12:37 | P.PROGSL ---
Subjective DATE: 12/29/2024 FOLLOW UP VISIT. Patient returned to sleep center for follow-up visit to discuss results of home sleep apnea test and following plan. I discussed results of home sleep apnea test with patient in details. Apnea hypopnea index was documented at 4.7 times per hour, in supine position 5.8. According to patient she did not sleep well during home sleep apnea test, which could do results of sleep test false negative. Patient continued to have sleep problems. [place] sleepiness scale is 8. MEDICATIONS: Please see below During physical exam: GENERAL: A pleasant patient without any distress. VITAL SIGNS: Please see below, weight 184 pounds, BMI 30.1. HEENT: PERRLA, EOMI. NECK: Supple. No JVD. LUNGS: Clear to percussion and to auscultation. Good air exchange. No wheezing or rhonchi. HEART: S1, S2 regular. ABDOMEN: Soft and nontender. EXTREMITIES: No clubbing or cyanosis. HOUSEKEEPER HEAD: Awake, alert, and oriented x3. No focal deficit. Impressions: 1. Snoring, extremely low position of soft palate, patient sleeps on the belly at home. Results of home sleep apnea test borderline apnea hypopnea index 4.7, on the back position 5.8. Patient did not sleep well during home sleep apnea test, which could be the reason for false negative results. 2. Anxiety. 3. History of panic attacks. 4. Acid reflux. 5. Allergy. 6. Status post cholecystectomy. Plan: 1. Polysomnography for evaluation of patient breathing during the sleep. 2. Sleep hygiene with regular time in bed for at least 8 hours. 3. Precautions related to driving. No driving if feel any sleepiness. Patient is aware about civil and criminal liability for unsafe driving, promised to follow recommendations. 4. Losing weight. 5. Following plan after reading sleep study. 6. Preferable position during the sleep on the side. Thank you very much for allowing me to participate in the management of your patient. Girma Ruiz MD, PhD, FAASM. Diplomat of [employer], Sleep Medicine Board by [employer] D[employer] of [facility] [place] cc: Moreno Rojas MD Objective - Vital Signs Vital Signs: Vital Signs Temp 97.7 F 12/29/24 11:32 Pulse 78 12/29/24 11:32 Resp 16 12/29/24 11:32 BP 122/83 12/29/24 11:32 Pulse Ox 96 12/29/24 11:32 FiO2 Intake & Output 12/28/24 12/29/24 12/29/24 18:59 06:59 18:59 Weight 83.461 kg Home Medications: Home Medications Medication Instructions Recorded Confirmed Type Latanoprost [Xalatan 0.005%] 1 drop BOTH EYES HS 03/25/20 12/29/24 History Acetyl L-Carnitine 1 cap PO DAILY 08/20/22 10/08/22 History Alpha Lipoic Acid 600 mg PO DAILY 08/20/22 10/08/22 History Ascorbic Acid [Vitamin C] 1,000 mg PO DAILY 08/20/22 10/08/22 History Cholecalciferol (Vitamin D3) 75 mcg PO DAILY 08/20/22 10/08/22 History [Vitamin D3 (3000 Iu)] Cyanocobalamin (Vitamin B-12) 1,000 mcg PO DAILY 08/20/22 10/08/22 History [Vitamin B-12] Escitalopram [Lexapro] 5 mg PO DAILY 08/20/22 12/29/24 History Loratadine [Claritin] 10 mg PO DAILY 08/20/22 10/08/22 History Magnesium 250 mg PO DAILY 08/20/22 10/08/22 History [place]-3/Dha/Epa/Fish Oil [Fish Oil 1 cap PO DAILY 08/20/22 10/08/22 History EC 1,000 mg Softgel] Turmeric Root Extract [Turmeric] 500 mg PO DAILY 08/20/22 10/08/22 History Vitamin B Complex 1 cap PO DAILY 08/20/22 10/08/22 History diazePAM 0.5 mg PO DAILY 08/20/22 10/08/22 History Pantoprazole [Protonix] 40 mg PO DAILY 30 Days #30 tab 08/21/22 12/29/24 Rx Montelukast [Singulair] 10 mg PO DAILY 12/29/24 12/29/24 History
== END ==
LOC: 3 N SLEEP 11:17
PROVIDERS: ATTEND Internal Medicine
DX: R06.83 Snoring (principal); K21.9 Gastro-esophageal reflux disease without esophagitis; F41.9 Anxiety disorder, unspecified; Z90.49 Acquired absence of other specified parts of digestive tract; Z86.59 Personal history of other mental and behavioral disorders; Z88.5 Allergy status to narcotic agent; Z88.0 Allergy status to penicillin
CPT/HCPCS: 99212

== ENCOUNTER 2025-02-01 19:45 | Outpatient (CLI) | payer BC ==
--- NOTE | 2025-02-02 10:30 | P.PCN ---
Description of Procedure: POLYSOMNOGRAPHY REPORT PROCEDURE(S)/DATE(S): Polysomnography 02/01/2025 CLINICAL: Patient has been seen in the sleep center for evaluation of obstructive sleep apnea-hypopnea syndrome. Please see my consultation. Sleep study has been done for evaluation of patient breathing during the sleep. PROCEDURE: The standard montage for clinical polysomnography included the electroencephalogram, the electrooculogram, the mentalis surface electromyography and Lead II cardiography. The respiratory battery consisted of measurements of nasal/buccal air flow, pressure transducer measurements from nose, thoracic and/or abdominal effort and intercostal surface electromyography. Video monitoring has been done to check for any parasomnia events. Nocturnal oxyhemoglobin saturations were obtained by finger oximetry. Step-lundberg titration with positive airway pressure was utilized to control the respiratory events, if necessary. RESULTS: During the diagnostic sleep study sleep efficiency was normal 89.8%. Latency to sleep onset was normal at 15.0 min. Sleep architecture showed stage NI was slightly decreased to 4.1%, Delta sleep was was very short 1.2%, REM sleep was slightly decreased to 18.6%. Respiratory channel showed 3 obstructive apneas, 0 mixed apneas, 0 central apneas, 41 hypopneas with lowest oxygen level 81%. Total apnea hypopnea index was 8.0. Heart rate was in the range between 65 and 75, average 70. EMG showed 0 periodic limb movements per hour. IMPRESSIONS: 1. Mild obstructive sleep apnea hypopnea syndrome with history of multiple awakenings from sleep. 2. No significant periodic limb movements have been documented. 3. Anxiety. 4. History of depression. Please see other impressions from consultation PLAN: 1. The patient will have AutoPAP treatment for correction of respiratory abnormalities during the sleep. 2. Watching and losing losing weight. 3. Sleep hygiene with regular time in bed for at least 7-1/2 hours. 4. No driving if feeling sleepiness. 5. I will see patient for follow-up visit to evaluate clinical response on treatment, compliance with treatment and [place] adjustments related to mask fitting pressure and humidification. Thank you very much for allowing me to participate in the management of your patient. Sincerely, Girma Ruiz MD, PhD, FAASM. Diplomat of [employer], Sleep Medicine Board by [employer] Head Buyer [employer] [facility] [place] cc: Moreno Rojas MD
== END 2025-02-02 05:40 | disposition home or self-care (01) ==
LOC: 3 N SLEEP 19:45
PROVIDERS: ATTEND Internal Medicine
DX: G47.33 Obstructive sleep apnea (adult) (pediatric) (principal); F41.9 Anxiety disorder, unspecified; Z86.59 Personal history of other mental and behavioral disorders; Z88.0 Allergy status to penicillin; Z88.5 Allergy status to narcotic agent; Z88.6 Allergy status to analgesic agent
CPT/HCPCS: 95810

== ENCOUNTER → 2025-04-06 | Outpatient (CLI) | payer BC ==
[2025-04-06 13:55] VITALS: BP 127/90; PULSE 86; RESP 16; TEMP 97.8
--- NOTE | 2025-04-06 14:16 | P.PROGSL ---
Subjective DATE: 04/06/2025 FOLLOW UP VISIT. Patient with obstructive sleep apnea hypopnea syndrome return to sleep center for follow-up visit. Recently patient had sleep study which documented obstructive sleep apnea hypopnea syndrome. Patient was initiated on PAP therapy and today is first visit after treatment was started. I explained to the patient results of sleep study. It showed mild sleep apnea with apnea hypopnea index 8. Patient was able to use PAP equipment every night for the whole night. For the last several nights patient had some allergy reaction and was not able to use your CPAP unit. After starting to use CPAP patient did not had any more anxiety reaction at night. The patient does not have significant problems with the mask, PAP pressure and humidification. [place] sleepiness scale is 2. I checked information from PAP unit. PAP unit pressure 5-12, average 7.3 cm H2O. Usage is 70% for more then 4 hours, average 7.2 hours per night. Leak is 4 l/m, which is in acceptable range. Apnea Hypopnea Index is 0.8, which is normal. MEDICATIONS: Please see below During physical exam: GENERAL: A pleasant patient without any distress. VITAL SIGNS: Please see below, weight 188 pounds. HEENT: PERRLA, EOMI.low position of soft palate, [place] 4 . NECK: Supple. No JVD. LUNGS: Clear to percussion and to auscultation. Good air exchange. No wheezing or rhonchi. HEART: S1, S2 regular. ABDOMEN: Soft and nontender.[] EXTREMITIES: No clubbing or cyanosis. MAIL DELIVERER: Awake, alert, and oriented x3. No focal deficit. Impressions: 1. Obstructive sleep apnea-hypopnea syndrome. Patient demonstrated good compliance with treatment, benefiting from treatment. 2. Acid reflux. 3. History of anxiety episodes and panic attacks during the sleep. No episodes after starting to use CPAP equipment. 4. Allergy 5. Status post cholecystectomy. Plan: 1. Continue using PAP equipment every night for the whole night. 2. To change air filter at least 1-2 times per month. 3. PAP unit should stay lower then position of the head. 4. Advised patient to remove all remaining water from humidifier canister daily and make it dry after each usage. Refill canister with fresh distilled water before each usage. 5. Sleep hygiene with regular time in bed for at least 8 hours. 6. Precautions related to driving. No driving if feel any sleepiness. 7. I will maintain prescription for PAP supplies including mask, tube, filters. 8. Follow up visit in 8 months or earlier if patient has any problems. 9. Watching weight. Thank you very much for allowing me to participate in the management of your patient. Girma Ruiz MD, PhD, FAASM. Diplomat of [employer], Sleep Medicine Board by [employer] Tr[employer] [facility] [place] cc: Moreno Rojas MD Objective - Vital Signs Vital Signs: Vital Signs Temp 97.8 F 04/06/25 13:54 Pulse 86 04/06/25 13:54 Resp 16 04/06/25 13:54 BP 127/90 04/06/25 13:54 Pulse Ox 98 04/06/25 13:54 FiO2 Home Medications: Home Medications Medication Instructions Recorded Confirmed Type Latanoprost [Xalatan 0.005%] 1 drop BOTH EYES HS 03/25/20 12/29/24 History Acetyl L-Carnitine 1 cap PO DAILY 08/20/22 10/08/22 History Alpha Lipoic Acid 600 mg PO DAILY 08/20/22 10/08/22 History Ascorbic Acid [Vitamin C] 1,000 mg PO DAILY 08/20/22 10/08/22 History Cholecalciferol (Vitamin D3) 75 mcg PO DAILY 08/20/22 10/08/22 History [Vitamin D3 (3000 Iu)] Cyanocobalamin (Vitamin B-12) 1,000 mcg PO DAILY 08/20/22 10/08/22 History [Vitamin B-12] Escitalopram [Lexapro] 5 mg PO DAILY 08/20/22 12/29/24 History Loratadine [Claritin] 10 mg PO DAILY 08/20/22 10/08/22 History Magnesium 250 mg PO DAILY 08/20/22 10/08/22 History Ambia-3/Dha/Epa/Fish Oil [Fish Oil 1 cap PO DAILY 08/20/22 10/08/22 History EC 1,000 mg Softgel] Turmeric Root Extract [Turmeric] 500 mg PO DAILY 08/20/22 10/08/22 History Vitamin B Complex 1 cap PO DAILY 08/20/22 10/08/22 History diazePAM 0.5 mg PO DAILY 08/20/22 10/08/22 History Pantoprazole [Protonix] 40 mg PO DAILY 30 Days #30 tab 08/21/22 12/29/24 Rx Montelukast [Singulair] 10 mg PO DAILY 12/29/24 12/29/24 History
== END ==
LOC: 3 N SLEEP 13:35
PROVIDERS: ATTEND Internal Medicine
DX: G47.33 Obstructive sleep apnea (adult) (pediatric) (principal); K21.9 Gastro-esophageal reflux disease without esophagitis; F41.0 Panic disorder [episodic paroxysmal anxiety]; Z86.59 Personal history of other mental and behavioral disorders; Z99.89 Dependence on other enabling machines and devices; Z90.49 Acquired absence of other specified parts of digestive tract; Z88.9 Allergy status to unspecified drugs, medicaments and biological substances; Z88.0 Allergy status to penicillin; Z88.5 Allergy status to narcotic agent; Z88.8 Allergy status to other drugs, medicaments and biological substances
CPT/HCPCS: 99212